=== PATIENT | male | born 1960 | race Caucasian/White ===

== ENCOUNTER → 2016-03-06 | Outpatient (CLI) | payer BC ==
--- NOTE | 2016-03-06 11:34 | XR ---
EXAMINATION TYPE: XR chest 2V DATE OF EXAM: 03/06/2016 11:20 AM COMPARISON: 05/27/2014 INDICATION: Difficulty breathing history of COPD TECHNIQUE: Frontal and lateral views of the chest are obtained. FINDINGS: The heart size is normal. The pulmonary vasculature is normal. Some minimal linear atelectasis may be within the right midlung. IMPRESSION: 1. Mild atelectasis right midlung.
== END | disposition home or self-care (01) ==
LOC: RADXRMAIN 10:48
PROVIDERS: ATTEND Nurse Practitioner Family
DX: J98.11 Atelectasis (principal)
CPT/HCPCS: 71020

== ENCOUNTER 2019-03-09 10:01 | Inpatient (IN) | payer BC, OTHER ==
[2019-03-09] MEDS ORDERED: methylPREDNISolone SOD SUCCI 125 MG/2 ML VIAL IV STA (10:20)
[2019-03-09] MEDS ORDERED: IPRATROPIUM-ALBUTEROL 3 ML NEB INHALATION STA (10:20)
--- NOTE | 2019-03-09 10:21 | ED ---
SOB HPI - General Source: patient Mode of arrival: wheelchair Limitations: no limitations <Denis Montoya - Last Filed: 03/09/19 13:49> <Tricia Aguilar - Last Filed: 03/11/19 22:09> - General Chief Complaint: Shortness of Breath Stated Complaint: RADHA Time Seen by Provider: 03/09/19 10:14 - History of Present Illness Initial Comments: Patient is a 58-year-old male with history of COPD presents emergency Department with a chief complaint of shortness of breath. Patient reports initially developing respiratory symptoms and nonproductive cough 4 days ago. He states states that he went to his primary care was prescribed azithromycin. Patient states he has been taking his medication as directed with minimal improvement in symptoms. Patient reports increased shortness of breath but denies any chest pain. Did reports some wheezing at home but not in the ED. Patient does not use oxygen at home but does have multiple inhalers for his COPD. Patient was a lifelong smoker but quit 2 years ago. Patient does report chills but denies any fevers. Does report several episodes of posttussive emesis. Patient does have history of frequent pneumonia. (Denis Montoya) - Related Data Home Medications Medication Instructions Recorded Confirmed Albuterol Inhaler [Ventolin 1 - 2 puff INHALATION RT-QID PRN 03/09/19 03/09/19 Inhaler] Azithromycin [Zithromax Z-pack] See Taper PO DIRECTED 03/09/19 03/09/19 Benzonatate [Tessalon Perles] 100 mg PO TID PRN 03/09/19 03/09/19 Budesonide-Formot 160-4.5 Mcg 2 puff INHALATION RT-BID 03/09/19 03/09/19 [Symbicort 160-4.5 Mcg Inhaler] Ipratropium/Albuterol Sulfate 1 puff INHALATION RT-QID 03/09/19 03/09/19 [Combivent Respimat Inhaler] predniSONE [Deltasone] 40 mg PO DAILY 03/09/19 03/09/19 Allergies Allergy/AdvReac Type Severity Reaction Status Date / Time Penicillins Allergy Rash/Hives Verified 03/09/19 12:33 Review of Systems ROS Other: All systems not noted in ROS Statement are negative. <Denis Montoya - Last Filed: 03/09/19 13:49> ROS Other: All systems not noted in ROS Statement are negative. <Tricia Aguilar Sharla - Last Filed: 03/11/19 22:09> ROS Statement: Those systems with pertinent positive or pertinent negative responses have been documented in the HPI. Past Medical History Past Medical History: COPD, Pneumonia History of Any Multi-Drug Resistant Organisms: None Reported Past Surgical History: Appendectomy, Tonsillectomy Additional Past Surgical History / Comment(s): Shoulder Surgery, Knee Surgery Past Psychological History: No Psychological Hx Reported Smoking Status: Former smoker Past Alcohol Use History: None Reported Past Drug Use History: None Reported <Denis Montoya - Last Filed: 03/09/19 13:49> General Exam Limitations: no limitations General appearance: alert, in no apparent distress Head exam: Present: atraumatic, normocephalic, normal inspection Eye exam: Present: normal appearance, PERRL, EOMI Pupils: Present: normal accommodation ENT exam: Present: normal exam, normal oropharynx, mucous membranes moist, TM's normal bilaterally, normal external ear exam Neck exam: Present: normal inspection, full ROM. Absent: lymphadenopathy Respiratory exam: Present: wheezes (Bilateral wheezing). Absent: chest wall tenderness, accessory muscle use Cardiovascular Exam: Present: normal rhythm, tachycardia, normal heart sounds GI/Abdominal exam: Present: soft. Absent: distended, tenderness Extremities exam: Present: normal inspection, full ROM Back exam: Present: normal inspection, full ROM Neurological exam: Present: alert, oriented X3 Psychiatric exam: Present: normal affect, normal mood Skin exam: Present: warm, dry, intact, normal color <Denis Montoya - Last Filed: 03/09/19 13:49> Course Vital Signs 03/09/19 03/09/19 03/09/19 10:06 10:37 10:46 Temperature 99.3 F Pulse Rate 108 H 108 H 112 H Respiratory 18 Rate Blood Pressure 99/64 O2 Sat by Pulse 90 L Oximetry 03/09/19 03/09/19 03/09/19 11:07 11:18 11:52 Temperature 100.5 F H Pulse Rate 110 H 104 H Respiratory 20 20 Rate Blood Pressure 119/80 118/72 O2 Sat by Pulse 88 L 95 94 L Oximetry 03/09/19 03/09/19 03/09/19 12:47 13:08 13:48 Temperature 99.1 F Pulse Rate 100 Respiratory 22 Rate Blood Pressure 117/47 O2 Sat by Pulse 92 L 95 Oximetry 03/09/19 14:00 Temperature Pulse Rate 89 Respiratory 20 Rate Blood Pressure 102/71 O2 Sat by Pulse 92 L Oximetry Medical Decision Making - Lab Data Result diagrams: 03/09/19 12:44 03/09/19 12:44 <Denis Montoya - Last Filed: 03/09/19 13:49> - Lab Data Result diagrams: 03/11/19 07:14 03/11/19 07:14 <Tricia Aguilar - Last Filed: 03/11/19 22:09> - Medical Decision Making Patient is 58-year-old male with history of COPD presents emergency Department with a chief complaint of shortness of breath. On exam patient does appear to be short of breath with very mild wheezing bilaterally. Patient was given DuoNeb treatment with some improvement in symptoms. Chest x-ray shows an opacity in the left lower lung base suggesting pneumonia. Patient is also influenza positive. Patient has already failed outpatient treatment and continues to be short of breath after updraft. Patient also given Solu-Medrol to treat COPD exacerbation. Patient did develop a fever in the ED and was treated with Tylenol. Patient will be admitted for further management. Patient started on Rocephin. Case discussed with physician. Accepting physician is dr. dumont (Denis Montoya) I was available for consultation in the emergency department. The history and physical exam were done by the midlevel provider. I was consulted for this patients care. I reviewed the case with the midlevel provider and based on their presentation of the patient, I agree with the assessment, medical decision making and plan of care as documented. I discussed the case with Dr. Bolivar who accepted admission of the patient. Chart was dictated using [employer] dictation software. Attempts were made to correct any dictation errors however some typographical errors may persist. (Tricia Aguilar) - Lab Data Lab Results 03/09/19 03/09/19 03/09/19 Range/Units 10:29 12:44 12:44 WBC 2.9 L (3.8-10.6) k/uL RBC 5.09 (4.30-5.90) m/uL Hgb 14.3 (13.0-17.5) gm/dL Hct 43.7 (39.0-53.0) % MCV 85.9 (80.0-100.0) fL MCH 28.1 (25.0-35.0) pg MCHC 32.7 (31.0-37.0) g/dL RDW 14.3 (11.5-15.5) % Plt Count 213 (150-450) k/uL Neutrophils % 83 % Lymphocytes % 8 % Monocytes % 4 % Eosinophils % 1 % Basophils % 3 % Neutrophils # 2.4 (1.3-7.7) k/uL Lymphocytes # 0.3 L (1.0-4.8) k/uL Monocytes # 0.1 (0-1.0) k/uL Eosinophils # 0.0 (0-0.7) k/uL Basophils # 0.1 (0-0.2) k/uL Sodium 136 L (137-145) mmol/L Potassium 4.4 (3.5-5.1) mmol/L Chloride 105 (98-107) mmol/L Carbon Dioxide 25 (22-30) mmol/L Anion Gap 6 mmol/L BUN 22 H (9-20) mg/dL Creatinine 0.73 (0.66-1.25) mg/dL Est GFR (CKD-EPI)AfAm >90 (>60 ml/min/1.73 sqM) Est GFR (CKD-EPI)NonAf >90 (>60 ml/min/1.73 sqM) Glucose 116 H (74-99) mg/dL Plasma Lactic Acid Vinny (0.7-2.0) mmol/L Calcium 7.9 L (8.4-10.2) mg/dL Total Bilirubin 0.4 (0.2-1.3) mg/dL AST 45 (17-59) U/L ALT 23 (4-49) U/L Alkaline Phosphatase 70 (38-126) U/L Total Protein 6.4 (6.3-8.2) g/dL Albumin 3.6 (3.5-5.0) g/dL Influenza Type A RNA Detected H (Not Detectd) Influenza Type B (PCR) Not Detected (Not Detectd) 03/09/19 Range/Units 12:44 WBC (3.8-10.6) k/uL RBC (4.30-5.90) m/uL Hgb (13.0-17.5) gm/dL Hct (39.0-53.0) % MCV (80.0-100.0) fL MCH (25.0-35.0) pg MCHC (31.0-37.0) g/dL RDW (11.5-15.5) % Plt Count (150-450) k/uL Neutrophils % % Lymphocytes % % Monocytes % % Eosinophils % % Basophils % % Neutrophils # (1.3-7.7) k/uL Lymphocytes # (1.0-4.8) k/uL Monocytes # (0-1.0) k/uL Eosinophils # (0-0.7) k/uL Basophils # (0-0.2) k/uL Sodium (137-145) mmol/L Potassium (3.5-5.1) mmol/L Chloride (98-107) mmol/L Carbon Dioxide (22-30) mmol/L Anion Gap mmol/L BUN (9-20) mg/dL Creatinine (0.66-1.25) mg/dL Est GFR (CKD-EPI)AfAm (>60 ml/min/1.73 sqM) Est GFR (CKD-EPI)NonAf (>60 ml/min/1.73 sqM) Glucose (74-99) mg/dL Plasma Lactic Acid Vinny 0.7 (0.7-2.0) mmol/L Calcium (8.4-10.2) mg/dL Total Bilirubin (0.2-1.3) mg/dL AST (17-59) U/L ALT (4-49) U/L Alkaline Phosphatase (38-126) U/L Total Protein (6.3-8.2) g/dL Albumin (3.5-5.0) g/dL Influenza Type A RNA (Not Detectd) Influenza Type B (PCR) (Not Detectd) Disposition Is patient prescribed a controlled substance at d/c from ED?: No Time of Disposition: 13:53 <Denis Montoya - Last Filed: 03/09/19 13:49> <Tricia Aguilar - Last Filed: 03/11/19 22:09> Clinical Impression: Pneumonia, Shortness of breath, Influenza A Disposition: ADMITTED IP TO THIS HOSP Condition: Fair
[2019-03-09] MEDS ORDERED: ACETAMINOPHEN TAB 500 MG TAB PO STA (11:38)
--- NOTE | 2019-03-09 11:52 | XR ---
EXAMINATION TYPE: XR chest 2V DATE OF EXAM: 03/09/2019 COMPARISON: 03/06/2016 HISTORY: Shortness of breath TECHNIQUE: Frontal and lateral views of the chest are obtained. FINDINGS: Scattered senescent parenchymal changes noted. Hyperinflation compatible with COPD. Focal area of infiltrate suggested left lateral lung base. Correlate for pneumonia. Follow-up until r esolution is advised. Interstitial prominence is also noted throughout both lung paul. Heart size is stable. Mediastinal structures are stable and grossly unremarkable. No evidence for hilar prominence. Degenerative changes dorsal spine. IMPRESSION: 1. Focal area of infiltrate suggested left lateral lung base. Correlate for pneumonia. Follow-up unti l resolution is advised. Interstitial prominence is also noted throughout both lung paul.
[2019-03-09 12:58] LABS: Basophils # (A) 0.1 k/uL (0-0.2); Basophils % (A) 3 %; Eosinophils % (A) 1 %; HCT 43.7 % (39.0-53.0); HGB 14.3 gm/dL (13.0-17.5); Lymphocytes # (A) 0.3 k/uL (1.0-4.8); Lymphocytes % (A) 8 %; MCH 28.1 pg (25.0-35.0); MCHC 32.7 g/dL (31.0-37.0); MCV 85.9 fL (80.0-100.0); Monocytes # (A) 0.1 k/uL (0-1.0); Monocytes % (A) 4 %; Neutrophils # (A) 2.4 k/uL (1.3-7.7); Neutrophils % (A) 83 %; Platelet Count 213 k/uL (150-450); RBC 5.09 m/uL (4.30-5.90); RDW 14.3 % (11.5-15.5); WBC 2.9 k/uL (3.8-10.6)
[2019-03-09 13:06] LABS: ALT 23 U/L (4-49); AST 45 U/L (17-59); African American GFR (CKD) >90 (>60 ml/min/1.73 sqM); Albumin 3.6 g/dL (3.5-5.0); Alkaline Phosphatase 70 U/L (38-126); Anion Gap 6 mmol/L; Blood Urea Nitrogen 22 mg/dL (9-20); Calcium 7.9 mg/dL (8.4-10.2); Carbon Dioxide 25 mmol/L (22-30); Chloride 105 mmol/L (98-107); Glucose 116 mg/dL (74-99); Non-African American GFR(CKD) >90 (>60 ml/min/1.73 sqM); Potassium 4.4 mmol/L (3.5-5.1); Sodium 136 mmol/L (137-145); Total Bilirubin 0.4 mg/dL (0.2-1.3); Total Protein 6.4 g/dL (6.3-8.2)
[2019-03-09] MEDS ORDERED: PNEUMONIA PROTOCOL UTILIZED 1 EACH MISC PO PRN ×2 (13:48→17:33)
[2019-03-09] MEDS ORDERED: cefTRIAXone IN SWFI 1,000 MG/10 ML SYRINGE IVP STA (13:49)
[2019-03-09] MEDS ORDERED: INFLUENZA VACCINE (6 MOS+) 60 MCG/0.5 ML SYRINGE IM ONE (14:53)
[2019-03-09] MEDS ORDERED: AZITHROMYCIN 500 MG in SODIUM CHLORIDE 0.9% 250 ML IVPB STA (17:33)
[2019-03-09] MEDS ORDERED: BENZONATATE 100 MG CAP PO PRN (17:36)
[2019-03-09] MEDS: methylPREDNISolone SOD SUCCI 125 MG/2 ML VIAL IV SCH ×2 (18:13→23:06)
[2019-03-09 20:31] LABS: Glucose,Whole Blood 142 mg/dL (75-99)
[2019-03-09] MEDS ORDERED: AZITHROMYCIN 500 MG in SODIUM CHLORIDE 0.9% 250 ML IVPB ONE (21:00)
[2019-03-09] MEDS: IPRATROPIUM-ALBUTEROL 3 ML NEB INHALATION SCH (21:29)
[2019-03-09] MEDS: SYMBICORT 160-4.5 MCG INHALER INHALATION SCH (21:29)
[2019-03-10] MEDS: methylPREDNISolone SOD SUCCI 125 MG/2 ML VIAL IV SCH ×3 (05:09→17:40)
[2019-03-10] MEDS: IPRATROPIUM-ALBUTEROL 3 ML NEB INHALATION SCH ×4 (07:12→19:37)
[2019-03-10] MEDS: SYMBICORT 160-4.5 MCG INHALER INHALATION SCH (07:12)
[2019-03-10 07:16] LABS: Glucose,Whole Blood 153 mg/dL (75-99)
--- NOTE | 2019-03-10 08:46 | XR ---
EXAMINATION TYPE: XR chest 2V DATE OF EXAM: 03/10/2019 COMPARISON: 03/09/2019 TECHNIQUE: PA and lateral views submitted. HISTORY: Cough possible pneumonia FINDINGS: No pneumothorax or pleural effusion. Subsegmental changes left lung base again noted. Coarsened inter stitium noted. Hypertrophic and degenerative change of the spine. Hyperinflation of the lungs. Pulmon [place] arteries are prominent correlate for pulmonary arterial hypertension. IMPRESSION: 1. COPD with findings suggestive of chronic interstitial lung disease such as pulmonary fibrosis. Fin dings similar to the prior exam. 2. Density along the left lateral lung bases improved correlate for resolving or improving infiltrate
[2019-03-10 09:27] LABS: Basophils % (A) 1 %; Eosinophils % (A) 0 %; HCT 43.8 % (39.0-53.0); HGB 14.2 gm/dL (13.0-17.5); Lymphocytes # (A) 0.3 k/uL (1.0-4.8); Lymphocytes % (A) 15 %; MCH 28.3 pg (25.0-35.0); MCHC 32.4 g/dL (31.0-37.0); MCV 87.3 fL (80.0-100.0); Mean Platelet Volume 6.8; Monocytes # (A) 0.2 k/uL (0-1.0); Monocytes % (A) 7 %; Neutrophils # (A) 1.6 k/uL (1.3-7.7); Neutrophils % (A) 73 %; Platelet Count 173 k/uL (150-450); RBC 5.02 m/uL (4.30-5.90); RDW 14.3 % (11.5-15.5); WBC 2.2 k/uL (3.8-10.6)
[2019-03-10 09:56] LABS: African American GFR (CKD) >90 (>60 ml/min/1.73 sqM); Anion Gap 8 mmol/L; Blood Urea Nitrogen 22 mg/dL (9-20); Calcium 7.8 mg/dL (8.4-10.2); Carbon Dioxide 27 mmol/L (22-30); Chloride 104 mmol/L (98-107); Glucose 156 mg/dL (74-99); Magnesium 2.2 mg/dL (1.6-2.3); Non-African American GFR(CKD) >90 (>60 ml/min/1.73 sqM); Potassium 4.3 mmol/L (3.5-5.1); Sodium 139 mmol/L (137-145)
[2019-03-10 12:30] LABS: Glucose,Whole Blood 147 mg/dL (75-99)
[2019-03-10] MEDS ORDERED: OSELTAMIVIR 75 MG CAP PO SCH (13:00)
--- NOTE | 2019-03-10 15:34 | P.HPIM ---
History of Present Illness H&P Date: 03/10/19 Chief Complaint: Worsening shortness of breath This is a 58-year-old gentleman history of COPD, gastroesophageal reflux disease, pneumonia, arthritis, former nicotine dependence, quit 2 years ago and multiple other medical issues. Presented to the ER with complaints of worsening shortness of breath accompanied by nonproductive cough of 4 days. Initially presented to PCPs office, prescribed azithromycin with minimal improvement. Denies chest pain, palpitations. Denies lightheadedness, dizziness or focal deficit. Denies fevers. Reports chills, nausea, vomiting. T-max 100.5. On admission O2 sat 88-90% on room air. CBC 2.2, calcium 7.8, CRP 11.4. Tested positive for influenza A. chest x-ray reporting left lateral lung base infiltrate with interstitial prominence throughout both lung paul. Follow-up chest x-ray this morning reported COPD, chronic interstitial lung disease , possible pulmonary fibrosis, improvement in left lateral lung base density. Past Medical History Past Medical History: COPD, GERD/Reflux, Pneumonia Additional Past Medical History / Comment(s): Frequent pneumonias, arthritis bilateral hands, L sided sciatica History of Any Multi-Drug Resistant Organisms: None Reported Past Surgical History: Appendectomy, Orthopedic Surgery, Tonsillectomy Additional Past Surgical History / Comment(s): R shoulder rotator cuff surgery, R knee arthroscopic surgery to remove a spur, colonoscopy. Past Anesthesia/Blood Transfusion Reactions: No Reported Reaction Smoking Status: Former smoker - Past Family History Father Family Medical History: Myocardial Infarction (TN) Additional Family Medical History / Comment(s): Father of a [place] at the age of 67yrs. Mother Family Medical History: Rheumatoid Arthritis (RA) Additional Family Medical History / Comment(s): Mother from a complication of her RA Medications and Allergies Home Medications Medication Instructions Recorded Confirmed Type Albuterol Inhaler [Ventolin 1 - 2 puff INHALATION RT-QID PRN 03/09/19 03/09/19 History Inhaler] Azithromycin [Zithromax Z-pack] See Taper PO DIRECTED 03/09/19 03/09/19 History Benzonatate [Tessalon Perles] 100 mg PO TID PRN 03/09/19 03/09/19 History Budesonide-Formot 160-4.5 Mcg 2 puff INHALATION RT-BID 03/09/19 03/09/19 History [Symbicort 160-4.5 Mcg Inhaler] Ipratropium/Albuterol Sulfate 1 puff INHALATION RT-QID 03/09/19 03/09/19 History [Combivent Respimat Inhaler] predniSONE 40 mg PO DAILY 03/09/19 03/09/19 History Allergies Allergy/AdvReac Type Severity Reaction Status Date / Time Penicillins Allergy Rash/Hives Verified 03/09/19 12:33 Physical Exam Vitals: Vital Signs Temp Pulse Pulse Resp BP Pulse Ox 03/10/19 11:05 82 03/10/19 10:51 80 03/10/19 07:27 78 03/10/19 07:13 75 95 03/10/19 05:00 97.7 F 73 20 115/72 92 L 03/09/19 22:20 20 03/09/19 21:52 100 03/09/19 21:32 100 03/09/19 21:00 97.7 F 85 20 110/69 95 03/09/19 15:40 98.0 F 78 16 109/69 95 Intake and Output 03/10/19 03/10/19 03/10/19 06:59 14:59 22:59 Other: # Voids 2 Results CBC & Chem 7: 03/10/19 08:48 03/10/19 08:48 Labs: Abnormal Lab Results - Last 24 Hours (Table) 03/09/19 03/09/19 03/10/19 Range/Units 17:43 20:29 07:12 WBC (3.8-10.6) k/uL Lymphocytes # (1.0-4.8) k/uL BUN (9-20) mg/dL Creatinine (0.66-1.25) mg/dL Glucose (74-99) mg/dL POC Glucose (mg/dL) 142 H 153 H (75-99) mg/dL Calcium (8.4-10.2) mg/dL C-Reactive Protein 11.4 H (<10.0) mg/L 03/10/19 03/10/19 03/10/19 Range/Units 08:48 08:48 12:26 WBC 2.2 L (3.8-10.6) k/uL Lymphocytes # 0.3 L (1.0-4.8) k/uL BUN 22 H (9-20) mg/dL Creatinine 0.63 L (0.66-1.25) mg/dL Glucose 156 H (74-99) mg/dL POC Glucose (mg/dL) 147 H (75-99) mg/dL Calcium 7.8 L (8.4-10.2) mg/dL C-Reactive Protein (<10.0) mg/L Microbiology - Last 24 Hours (Table) 03/09/19 12:44 Blood Culture - Preliminary Blood No Growth after 24 hours Thrombosis Risk Factor Assmnt - Choose All That Apply Any of the Below Risk Factors Present?: Yes Each Factor Represents 1 point: Abnormal pulmonary function (COPD), Age 41-60 years, Serious lung disease incl. pneumonia (< 1month) Other Risk Factors: No Other congenital or acquired thrombophilia - If yes, enter type in comment: No Thrombosis Risk Factor Assessment Total Risk Factor Score: 3 Thrombosis Risk Factor Assessment Level: Moderate Risk Assessment and Plan Assessment: Acute hypoxic, hypercapnic respiratory failure, related to acute COPD exacerbation, viral left lower lobe pneumonia, influenza A, failed outpatient treatment Possible chronic interstitial lung disease Possible pulmonary fibrosis Former nicotine dependence, quit 2 years ago Gastroesophageal reflux disease Family history of CAD Plan: Continue on current medication regime ,monitoring and symptomatic treatment. Nebulized bronchodilators, Pulmicort, IV steroids, Rocephin, Zithromax ordered. No Tamiflu as symptoms are greater than 4 days. GI prophylaxis in place with PPI. DVT prophylaxis; Compression stockings, patient ambulatory. Home meds have been reviewed and resumed. Pulmonary consulted. Benzonate discontinued, Mucinex ordered. Continue following cultures closely. The impression and plan of care has been dictated as directed. : I performed a history and examination of this patient, discussed the same with the dictator. I agree with the dictator's note ,documented as a scribe. Any additional findings or plans will be noted.
[2019-03-10] MEDS: BUDESONIDE 1 MG/2 ML NEBU INHALATION SCH ×2 (15:53→19:37)
[2019-03-10] MEDS: guaiFENesin 600 MG TABLET.ER PO SCH (16:36)
[2019-03-10] MEDS: PANTOPRAZOLE 40 MG/10 ML VIAL IVP SCH (16:36)
[2019-03-10 17:17] LABS: Glucose,Whole Blood 152 mg/dL (75-99)
[2019-03-10] MEDS: INSULIN ASPART (NovoLOG) 100 UNIT/ML VIAL SQ SCH ×2 (17:40→21:28)
[2019-03-10 21:07] LABS: Glucose,Whole Blood 169 mg/dL (75-99)
[2019-03-11] MEDS: methylPREDNISolone SOD SUCCI 125 MG/2 ML VIAL IV SCH ×4 (00:11→17:15)
[2019-03-11 07:01] LABS: Glucose,Whole Blood 142 mg/dL (75-99)
[2019-03-11] MEDS: PANTOPRAZOLE 40 MG/10 ML VIAL IVP SCH (07:11)
[2019-03-11] MEDS: guaiFENesin 600 MG TABLET.ER PO SCH ×2 (07:11→21:14)
[2019-03-11] MEDS: INSULIN ASPART (NovoLOG) 100 UNIT/ML VIAL SQ SCH ×4 (07:12→21:15)
[2019-03-11 07:43] LABS: Basophils # (A) 0.1 k/uL (0-0.2); Basophils % (A) 1 %; Eosinophils % (A) 0 %; HCT 41.3 % (39.0-53.0); HGB 13.1 gm/dL (13.0-17.5); Lymphocytes # (A) 0.5 k/uL (1.0-4.8); Lymphocytes % (A) 10 %; MCH 27.8 pg (25.0-35.0); MCHC 31.7 g/dL (31.0-37.0); MCV 87.5 fL (80.0-100.0); Mean Platelet Volume 7.4; Monocytes # (A) 0.3 k/uL (0-1.0); Monocytes % (A) 5 %; Neutrophils # (A) 4.4 k/uL (1.3-7.7); Neutrophils % (A) 80 %; Platelet Count 155 k/uL (150-450); RBC 4.71 m/uL (4.30-5.90); RDW 14.4 % (11.5-15.5); WBC 5.5 k/uL (3.8-10.6)
[2019-03-11 07:53] LABS: African American GFR (CKD) >90 (>60 ml/min/1.73 sqM); Anion Gap 5 mmol/L; Blood Urea Nitrogen 22 mg/dL (9-20); Calcium 7.9 mg/dL (8.4-10.2); Carbon Dioxide 28 mmol/L (22-30); Chloride 105 mmol/L (98-107); Glucose 154 mg/dL (74-99); Non-African American GFR(CKD) >90 (>60 ml/min/1.73 sqM); Potassium 4.3 mmol/L (3.5-5.1); Sodium 138 mmol/L (137-145)
[2019-03-11] MEDS: IPRATROPIUM-ALBUTEROL 3 ML NEB INHALATION SCH ×4 (08:52→20:09)
[2019-03-11] MEDS: BUDESONIDE 1 MG/2 ML NEBU INHALATION SCH ×2 (08:54→20:09)
[2019-03-11 12:18] LABS: Glucose,Whole Blood 134 mg/dL (75-99)
--- NOTE | 2019-03-11 15:43 | CONS ---
CONSULTATION PULMONARY/CRITICAL CARE CONSULTATION: DATE OF SERVICE: 03/11/2019 This is a 58-year-old gentleman who typically sees Dr. Alejandro Paredes and Dr. Basilio Bolivar. He presents to the emergency department on 03/09 with complaints of increasing shortness of breath which has been present for about 4 days and getting progressively worse. In addition to shortness of breath, he had chest congestion and nonproductive cough. Actually also may have had some fever. Did not actually measure his temperature at home. He went to his primary care physician and received azithromycin. He was taking medication as prescribed, but did not notice any significant improvement and for that reason, came to the emergency room to be evaluated. The patient denied any chest pain or chest discomfort. He did report some wheezing at home. The patient does not use oxygen at home, but does have multiple COPD inhalers. The patient has been smoking for many years, although quit a couple years ago. He used to see my partner, Dr. Rogers, but has not seen him recently. It appears that he has probably at least stage II and maybe stage III COPD. He was not sure about how much lung function he has lost. He denies any nausea, vomiting, diarrhea. Denies any genitourinary complaints. Denies any trauma. The patient apparently was tested in the emergency room, was thought to have influenza as well as atypical pneumonia. He is feeling a bit better. CURRENT HOME MEDICATIONS: Include albuterol inhaler in the form of Ventolin HFA, a Z-Guru which was started by him a couple days ago given to him by his primary doctor, Ollie Quick, Symbicort 160/4.5 two puffs twice a day, DuoNeb and prednisone 40 mg a day. ALLERGIES: PENICILLIN. MEDICAL HISTORY: Includes COPD from heavy tobacco use in the past. He also has a prior history of pneumonia. PAST SURGICAL HISTORY: Includes appendectomy, tonsillectomy, shoulder surgery and knee surgery. SOCIAL HISTORY: Positive for probably 40 years of tobacco use. Does not smoke currently. Denies any significant alcohol use or illicit drug use. FAMILY HISTORY: Noncontributory. Both mother and father were healthy. REVIEW OF SYSTEMS: CONSTITUTIONAL: Possible fever or at least temperature elevation without chills. NEUROLOGIC: Negative. HEENT: Negative. CARDIOVASCULAR: Negative. PULMONARY: Shortness of breath. CHEST: Tightness, wheezing, cough which is nonproductive, chest congestion. GI: Negative. : Negative. RHEUMATOLOGIC: Negative. IMMUNOLOGIC; Negative. ENDOCRINOLOGIC: Negative. DERMATOLOGIC: Negative. Current vital signs are reviewed. Temperature is 97.4, heart rate 72, respiratory rate 20, blood pressure 119/68 mean 85, 3 L saturation 93%-94%. Appears in no acute distress. HEENT: Examination is grossly unremarkable. Mucous membranes moist. No oral lesions. Nasal O2 noted. NECK: Supple full range of motion. No adenopathy, thyromegaly or neck vein distention. CARDIOVASCULAR: Examination reveals regular rhythm rate. Heart rate mid 70s. S1, S2 normal. There is no S3, S4, or murmur. LUNGS: Coarse expiratory rhonchi and wheezes. Breath sounds are diminished. There is prolongation on forced maneuver. The patient coughs and wheezes on forced maneuver. ABDOMEN: Soft, bowel sounds are heard. EXTREMITIES: Intact. No cyanosis, clubbing, or edema. SKIN: Without rash. NEUROLOGIC: Examination is brief but nonfocal. The chest x-ray, most recent chest x-ray was done both yesterday and today. It does show changes of COPD and a diffuse interstitial pattern which may be consistent with interstitial lung disease and/or atypical pneumonia. There also may be a left lateral lung base infiltrate. LABS: Reviewed. White count 5.5, hemoglobin 13.1, hematocrit 41.3, platelet count is a 155,000. The first couple of CBCs showed leukopenia and lymphopenia consistent with a viral infection. Sodium, potassium, chloride, CO2 all normal anion gap normal. BUN and creatinine were 22 and 0.68. Sugar 154, calcium 7.9. C-reactive protein 11.4, which is elevated. Influenza A studies were positive. Microbiologic studies including blood cultures were negative. Medications are reviewed. He is currently on Pulmicort 1 mg, Rocephin guaifenesin, insulin, Solu-Medrol, and Protonix. ASSESSMENT: 1. Chronic obstructive pulmonary disease exacerbation, likely triggered by influenza A infection. 2. No clear-cut evidence of pneumonia although the patient may have viral or atypical pneumonia based on his chest x-ray appearance. 3. Previous history of heavy tobacco use. 4. History of chronic obstructive pulmonary disease. 5. Prior history of pneumonia. PLAN: The patient will get formoterol added to his regimen. In addition, the patient is on Rocephin currently. I do not know if he has received Tamiflu. If he has not, he should. Additional recommendations and suggestions are forthcoming. Will continue to follow. Prognosis is guarded. He should follow up with Dr. Rogers or our office after discharge. MMODL / OPALN: [id number] /
[2019-03-11 16:59] LABS: Glucose,Whole Blood 196 mg/dL (75-99)
--- NOTE | 2019-03-11 17:26 | P.PN ---
Subjective Progress Note Date: 03/11/19 This is a 58-year-old gentleman history of COPD, gastroesophageal reflux disease, pneumonia, arthritis, former nicotine dependence, quit 2 years ago and multiple other medical issues. Presented to the ER with complaints of worsening shortness of breath accompanied by nonproductive cough of 4 days. Initially presented to PCPs office, prescribed azithromycin with minimal improvement. Denies chest pain, palpitations. Denies lightheadedness, dizziness or focal deficit. Denies fevers. Reports chills, nausea, vomiting. T-max 100.5. On admission O2 sat 88-90% on room air. CBC 2.2, calcium 7.8, CRP 11.4. Tested positive for influenza A. chest x-ray reporting left lateral lung base infiltrate with interstitial prominence throughout both lung paul. Follow-up chest x-ray this morning reported COPD, chronic interstitial lung disease , possible pulmonary fibrosis, improvement in left lateral lung base density. 03/11/2019 maintained on IV antibiotics, steroids, nebulized bronchodilators, breathing improving. Reports nonproductive cough, exertional shortness of breath, constipation. Denies chest pain, palpitations or shortness of breath. Afebrile, normal WBC. Evaluated by pulmonary with recommendations noted and appreciated. Objective - Vital Signs Vital signs: Vital Signs Temp 97.6 F 03/11/19 12:14 Pulse 80 03/11/19 17:06 Resp 20 03/11/19 12:14 BP 115/68 03/11/19 12:14 Pulse Ox 93 L 03/11/19 16:55 Intake & Output 03/10/19 03/11/19 03/11/19 18:59 06:59 18:59 Intake Total 800 Balance 800 Intake: Oral 800 Other: Voiding Method Toilet Toilet Urinal Urinal # Voids 2 2 2 - Exam VITAL SIGNS: [As above] GENERAL: Sitting up at side of bed, tired appearing HEENT: Conjunctivae normal. eyes normal. NECK: No JVD. No thyroid enlargement. No LNs CARDIOVASCULAR: S1, S2 regular.. No murmur RESPIRATION: Breath sounds diminished in the bases. Coarse rhonchi, no crackles. Expiratory wheezing ABDOMEN: Soft, nontender . No guarding. no masses palpable. No ascites, No hepatosplenomegaly.Bowel sounds heard. LEGS: No edema. no swelling PSYCHIATRY: Alert and oriented X3, mood and affect normal. NERVOUS SYSTEM: Cranial N 2-12 grossly normal. Moves all 4 limbs. Diffuse weakness No focal deficits. Strength and sensation grossly intact.. Skin:no rash Microbiology 03/09/19 12:44 Blood Blood Culture - Preliminary No Growth after 48 hours 03/09/19 17:43 Blood Blood Culture - Preliminary No Growth after 24 hours - Labs CBC & Chem 7: 03/11/19 07:14 03/11/19 07:14 Labs: Abnormal Lab Results - Last 24 Hours (Table) 03/10/19 03/10/19 03/11/19 Range/Units 17:14 21:06 06:50 Lymphocytes # (1.0-4.8) k/uL BUN (9-20) mg/dL Glucose (74-99) mg/dL POC Glucose (mg/dL) 152 H 169 H 142 H (75-99) mg/dL Calcium (8.4-10.2) mg/dL 03/11/19 03/11/19 03/11/19 Range/Units 07:14 07:14 12:13 Lymphocytes # 0.5 L (1.0-4.8) k/uL BUN 22 H (9-20) mg/dL Glucose 154 H (74-99) mg/dL POC Glucose (mg/dL) 134 H (75-99) mg/dL Calcium 7.9 L (8.4-10.2) mg/dL 03/11/19 Range/Units 16:45 Lymphocytes # (1.0-4.8) k/uL BUN (9-20) mg/dL Glucose (74-99) mg/dL POC Glucose (mg/dL) 196 H (75-99) mg/dL Calcium (8.4-10.2) mg/dL Microbiology - Last 24 Hours (Table) 03/09/19 12:44 Blood Culture - Preliminary Blood No Growth after 48 hours 03/09/19 17:43 Blood Culture - Preliminary Blood No Growth after 24 hours Assessment and Plan Assessment: Acute hypoxic, hypercapnic respiratory failure, related to acute COPD exacerbation, viral left lower lobe pneumonia, influenza A, failed outpatient treatment Possible chronic interstitial lung disease Possible pulmonary fibrosis Former nicotine dependence, quit 2 years ago Gastroesophageal reflux disease Family history of CAD Plan: Continue on current medication regime ,monitoring and symptomatic treatment. Nebulized bronchodilators, Pulmicort, IV steroids, Rocephin, Zithromax ordered. No Tamiflu as symptoms are greater than 4 days.Continue following cultures closely. The impression and plan of care has been dictated as directed. : I performed a history and examination of this patient, discussed the same with the dictator. I agree with the dictator's note ,documented as a scribe. Any additional findings or plans will be noted.
[2019-03-11] MEDS: POLYETHYLENE GLYCOL 3350 17 GM POWD.PACK PO SCH (17:34)
[2019-03-11] MEDS: FORMOTEROL FUMARATE 20 MCG/2 ML NEBU INHALATION SCH (20:09)
[2019-03-11 20:24] LABS: Glucose,Whole Blood 183 mg/dL (75-99)
[2019-03-11] MEDS: DOXYCYCLINE 100 MG CAP PO SCH (21:15)
[2019-03-12] MEDS: methylPREDNISolone SOD SUCCI 125 MG/2 ML VIAL IV SCH ×4 (00:50→17:21)
[2019-03-12 06:58] LABS: Glucose,Whole Blood 148 mg/dL (75-99)
[2019-03-12] MEDS: DOXYCYCLINE 100 MG CAP PO SCH ×2 (07:10→21:58)
[2019-03-12] MEDS: PANTOPRAZOLE 40 MG TABLET PO SCH (07:10)
[2019-03-12] MEDS: INSULIN ASPART (NovoLOG) 100 UNIT/ML VIAL SQ SCH ×4 (07:10→21:38)
[2019-03-12] MEDS: POLYETHYLENE GLYCOL 3350 17 GM POWD.PACK PO SCH (07:10)
[2019-03-12] MEDS: guaiFENesin 600 MG TABLET.ER PO SCH ×2 (07:10→21:39)
[2019-03-12] MEDS: IPRATROPIUM-ALBUTEROL 3 ML NEB INHALATION SCH ×4 (08:30→20:09)
[2019-03-12] MEDS: BUDESONIDE 1 MG/2 ML NEBU INHALATION SCH ×2 (08:30→20:09)
[2019-03-12] MEDS: FORMOTEROL FUMARATE 20 MCG/2 ML NEBU INHALATION SCH ×2 (08:30→20:09)
[2019-03-12 08:46] LABS: Basophils # (A) 0.1 k/uL (0-0.2); Basophils % (A) 1 %; Eosinophils % (A) 0 %; HCT 43.1 % (39.0-53.0); HGB 13.7 gm/dL (13.0-17.5); Lymphocytes # (A) 0.6 k/uL (1.0-4.8); Lymphocytes % (A) 6 %; MCH 28.3 pg (25.0-35.0); MCHC 31.8 g/dL (31.0-37.0); MCV 88.8 fL (80.0-100.0); Mean Platelet Volume 7.6; Monocytes # (A) 0.2 k/uL (0-1.0); Monocytes % (A) 3 %; Neutrophils # (A) 8.2 k/uL (1.3-7.7); Neutrophils % (A) 88 %; Platelet Count 184 k/uL (150-450); RBC 4.85 m/uL (4.30-5.90); RDW 14.5 % (11.5-15.5); WBC 9.3 k/uL (3.8-10.6)
[2019-03-12 09:02] LABS: African American GFR (CKD) >90 (>60 ml/min/1.73 sqM); Anion Gap 9 mmol/L; Blood Urea Nitrogen 21 mg/dL (9-20); Calcium 7.9 mg/dL (8.4-10.2); Carbon Dioxide 26 mmol/L (22-30); Chloride 105 mmol/L (98-107); Glucose 188 mg/dL (74-99); Non-African American GFR(CKD) >90 (>60 ml/min/1.73 sqM); Potassium 4.2 mmol/L (3.5-5.1); Sodium 140 mmol/L (137-145)
--- NOTE | 2019-03-12 11:56 | P.PN ---
Subjective Progress Note Date: 03/12/19 Principal diagnosis: Acute exacerbation of COPD likely triggered by influenza A infection On 03/12/2019 patient seen in follow-up on general medical floor, still dyspneic but breathing a little easier, improving, lung sounds are positive for some scattered rales and rhonchi, patient is on nebulized bronchodilators, IV steroids, Protonix, and doxycycline Objective - Vital Signs Vital signs: Vital Signs Temp 97.4 F L 03/12/19 04:33 Pulse 88 03/12/19 11:41 Resp 24 03/12/19 04:33 BP 121/73 03/12/19 04:33 Pulse Ox 94 L 03/12/19 04:33 Intake & Output 03/11/19 03/12/19 03/12/19 18:59 06:59 18:59 Other: Voiding Method Toilet Toilet Toilet Urinal Urinal Urinal # Voids 1 2 - Exam GENERAL EXAM: Alert, very pleasant, 58-year-old white male, on 3 L of oxygen with pulse ox of 94% dyspneic but comfortable in no apparent distress. HEAD: Normocephalic/atraumatic. EYES: Normal reaction of pupils, equal size. Conjunctiva pink, sclera white. NOSE: Clear with pink turbinates. THROAT: No erythema or exudates. NECK: No masses, no JVD, no thyroid enlargement, no adenopathy. CHEST: No chest wall deformity. Symmetrical expansion. LUNGS: Equal air entry with diffuse rhonchi and crackles CVS: Regular rate and rhythm, normal S1 and S2, no gallops, no murmurs, no rubs ABDOMEN: Soft, nontender. No hepatosplenomegaly, normal bowel sounds, no guarding or rigidity. EXTREMITIES: No clubbing, no edema, no cyanosis, 2+ pulses and upper and lower extremities. MUSCULOSKELETAL: Muscle strength and tone normal. SPINE: No scoliosis or deformity SKIN: No rashes CENTRAL NERVOUS SYSTEM: Alert and oriented -3. No focal deficits, tone is normal in all 4 extremities. PSYCHIATRIC: Alert and oriented -3. Appropriate affect. Intact judgment and insight. - Labs CBC & Chem 7: 03/12/19 07:53 03/12/19 07:53 Labs: Abnormal Lab Results - Last 24 Hours (Table) 03/11/19 03/11/19 03/11/19 Range/Units 12:13 16:45 20:12 Neutrophils # (1.3-7.7) k/uL Lymphocytes # (1.0-4.8) k/uL BUN (9-20) mg/dL Glucose (74-99) mg/dL POC Glucose (mg/dL) 134 H 196 H 183 H (75-99) mg/dL Calcium (8.4-10.2) mg/dL 03/12/19 03/12/19 03/12/19 Range/Units 06:57 07:53 07:53 Neutrophils # 8.2 H (1.3-7.7) k/uL Lymphocytes # 0.6 L (1.0-4.8) k/uL BUN 21 H (9-20) mg/dL Glucose 188 H (74-99) mg/dL POC Glucose (mg/dL) 148 H (75-99) mg/dL Calcium 7.9 L (8.4-10.2) mg/dL Microbiology - Last 24 Hours (Table) 03/09/19 17:43 Blood Culture - Preliminary Blood No Growth after 48 hours 03/09/19 12:44 Blood Culture - Preliminary Blood No Growth after 48 hours Assessment and Plan Plan: Assessment: #1. Acute exacerbation of chronic Active Pulmonary Disease Triggered by Influenza A Infection #2. No Clear Cut Evidence of Pneumonia Seen on the Chest X-Ray #3. Previous History of Heavy Tobacco Use #4. History of Chronic Obstructive Pulmonary Disease #5. Prior history of pneumonia Plan: Continue with doxycycline, continue with IV steroids and nebulized bronchodilators, patient is improving, but not back to baseline, still dyspneic and congested, need another 24 hours of inpatient treatment. Tamiflu was not initiated related to patient being well into the course of the infection. I performed a history & physical examination of the patient and discussed their management with my nurse practitioner, Francesca Contreras. I reviewed the nurse practitioner's note and agree with the documented findings and plan of care. Lung sounds are positive for diffuse rhonchi throughout the lung paul. The findings and the impression was discussed with the patient. I attest to the documentation by the nurse practitioner. Time with Patient: Less than 30
[2019-03-12 11:58] LABS: Glucose,Whole Blood 129 mg/dL (75-99)
[2019-03-12 13:01] VITALS: RESP 16
[2019-03-12 16:56] LABS: Glucose,Whole Blood 169 mg/dL (75-99)
--- NOTE | 2019-03-12 17:02 | P.PN ---
Subjective Progress Note Date: 03/12/19 This is a 58-year-old gentleman history of COPD, gastroesophageal reflux disease, pneumonia, arthritis, former nicotine dependence, quit 2 years ago and multiple other medical issues. Presented to the ER with complaints of worsening shortness of breath accompanied by nonproductive cough of 4 days. Initially presented to PCPs office, prescribed azithromycin with minimal improvement. Denies chest pain, palpitations. Denies lightheadedness, dizziness or focal deficit. Denies fevers. Reports chills, nausea, vomiting. T-max 100.5. On admission O2 sat 88-90% on room air. CBC 2.2, calcium 7.8, CRP 11.4. Tested positive for influenza A. chest x-ray reporting left lateral lung base infiltrate with interstitial prominence throughout both lung paul. Follow-up chest x-ray this morning reported COPD, chronic interstitial lung disease , possible pulmonary fibrosis, improvement in left lateral lung base density. 03/11/2019 maintained on IV antibiotics, steroids, nebulized bronchodilators, breathing improving. Reports nonproductive cough, exertional shortness of breath, constipation. Denies chest pain, palpitations or shortness of breath. Afebrile, normal WBC. Evaluated by pulmonary with recommendations noted and appreciated. 03/12/2019 maintained on doxycycline, nebulized bronchodilators, IV steroids with breathing slowly improving. Afebrile, normal WBC. Maintaining O2 sats in the low 90s on room air. Objective - Vital Signs Vital signs: Vital Signs Temp 97.7 F 03/12/19 13:00 Pulse 76 03/12/19 16:27 Resp 16 03/12/19 13:00 BP 121/54 03/12/19 13:00 Pulse Ox 92 L 03/12/19 13:00 Intake & Output 03/11/19 03/12/19 03/12/19 18:59 06:59 18:59 Other: Voiding Method Toilet Toilet Toilet Urinal Urinal # Voids 1 2 2 - Exam VITAL SIGNS: [As above] GENERAL: Sitting up at side of bed, tired appearing HEENT: Conjunctivae normal. eyes normal. NECK: No JVD. No thyroid enlargement. No LNs CARDIOVASCULAR: S1, S2 regular.. No murmur RESPIRATION: Air entry slowly improving .Breath sounds diminished in the bases. Coarse rhonchi, crackles. ABDOMEN: Soft, nontender . No guarding. no masses palpable. No ascites, No hepatosplenomegaly.Bowel sounds heard. LEGS: No edema. no swelling PSYCHIATRY: Alert and oriented X3, mood and affect normal. NERVOUS SYSTEM: Cranial N 2-12 grossly normal. Moves all 4 limbs. Diffuse weakness No focal deficits. Strength and sensation grossly intact.. Skin:no rash Microbiology 03/09/19 12:44 Blood Blood Culture - Preliminary No Growth after 72 hours 03/09/19 17:43 Blood Blood Culture - Preliminary No Growth after 48 hours - Labs CBC & Chem 7: 03/12/19 07:53 03/12/19 07:53 Labs: Abnormal Lab Results - Last 24 Hours (Table) 03/11/19 03/11/19 03/12/19 Range/Units 16:45 20:12 06:57 Neutrophils # (1.3-7.7) k/uL Lymphocytes # (1.0-4.8) k/uL BUN (9-20) mg/dL Glucose (74-99) mg/dL POC Glucose (mg/dL) 196 H 183 H 148 H (75-99) mg/dL Calcium (8.4-10.2) mg/dL 03/12/19 03/12/19 03/12/19 Range/Units 07:53 07:53 11:56 Neutrophils # 8.2 H (1.3-7.7) k/uL Lymphocytes # 0.6 L (1.0-4.8) k/uL BUN 21 H (9-20) mg/dL Glucose 188 H (74-99) mg/dL POC Glucose (mg/dL) 129 H (75-99) mg/dL Calcium 7.9 L (8.4-10.2) mg/dL 03/12/19 Range/Units 16:54 Neutrophils # (1.3-7.7) k/uL Lymphocytes # (1.0-4.8) k/uL BUN (9-20) mg/dL Glucose (74-99) mg/dL POC Glucose (mg/dL) 169 H (75-99) mg/dL Calcium (8.4-10.2) mg/dL Microbiology - Last 24 Hours (Table) 03/09/19 12:44 Blood Culture - Preliminary Blood No Growth after 72 hours 01/20/20 17:43 Blood Culture - Preliminary Blood No Growth after 48 hours Assessment and Plan Assessment: Acute hypoxic, hypercapnic respiratory failure, related to acute COPD exacerbation, possible viral left lower lobe pneumonia, influenza A, failed outpatient treatment Possible chronic interstitial lung disease Possible pulmonary fibrosis Former nicotine dependence, quit 2 years ago Gastroesophageal reflux disease Family history of CAD Plan: Continue on current medication regime ,monitoring and symptomatic treatment. Nebulized bronchodilators, Pulmicort, IV steroids, Rocephin, Zithromax ordered. No Tamiflu as symptoms are greater than 4 days. Increase ambulation as tolerated Discharge planning in progress for possibly tomorrow pending pulmonary clearance. The impression and plan of care has been dictated as directed. : I performed a history and examination of this patient, discussed the same with the dictator. I agree with the dictator's note ,documented as a scribe. Any additional findings or plans will be noted.
[2019-03-12 21:16] LABS: Glucose,Whole Blood 144 mg/dL (75-99)
[2019-03-13] MEDS: methylPREDNISolone SOD SUCCI 125 MG/2 ML VIAL IV SCH ×3 (00:20→11:48)
[2019-03-13 06:37] VITALS: BP 124/68; TEMP 97.9
[2019-03-13 07:23] LABS: Glucose,Whole Blood 138 mg/dL (75-99)
[2019-03-13] MEDS: INSULIN ASPART (NovoLOG) 100 UNIT/ML VIAL SQ SCH ×2 (07:38→11:54)
[2019-03-13] MEDS: guaiFENesin 600 MG TABLET.ER PO SCH (07:38)
[2019-03-13] MEDS: DOXYCYCLINE 100 MG CAP PO SCH (07:38)
[2019-03-13] MEDS: PANTOPRAZOLE 40 MG TABLET PO SCH (07:38)
[2019-03-13] MEDS: POLYETHYLENE GLYCOL 3350 17 GM POWD.PACK PO SCH (07:38)
[2019-03-13] MEDS: IPRATROPIUM-ALBUTEROL 3 ML NEB INHALATION SCH ×2 (08:05→11:22)
[2019-03-13] MEDS: BUDESONIDE 1 MG/2 ML NEBU INHALATION SCH (08:05)
[2019-03-13] MEDS: FORMOTEROL FUMARATE 20 MCG/2 ML NEBU INHALATION SCH (08:05)
[2019-03-13 08:37] LABS: Basophils % (A) 0 %; Eosinophils % (A) 0 %; HCT 46.2 % (39.0-53.0); HGB 14.4 gm/dL (13.0-17.5); Lymphocytes # (A) 0.8 k/uL (1.0-4.8); Lymphocytes % (A) 8 %; MCH 27.9 pg (25.0-35.0); MCHC 31.2 g/dL (31.0-37.0); MCV 89.2 fL (80.0-100.0); Mean Platelet Volume 7.5; Monocytes # (A) 0.3 k/uL (0-1.0); Monocytes % (A) 3 %; Neutrophils # (A) 9.4 k/uL (1.3-7.7); Neutrophils % (A) 88 %; Platelet Count 219 k/uL (150-450); RBC 5.18 m/uL (4.30-5.90); RDW 14.5 % (11.5-15.5); WBC 10.7 k/uL (3.8-10.6)
[2019-03-13 08:55] LABS: African American GFR (CKD) >90 (>60 ml/min/1.73 sqM); Anion Gap 8 mmol/L; Blood Urea Nitrogen 21 mg/dL (9-20); Calcium 8.1 mg/dL (8.4-10.2); Carbon Dioxide 29 mmol/L (22-30); Chloride 105 mmol/L (98-107); Glucose 140 mg/dL (74-99); Non-African American GFR(CKD) >90 (>60 ml/min/1.73 sqM); Potassium 4.7 mmol/L (3.5-5.1); Sodium 142 mmol/L (137-145)
[2019-03-13 11:51] LABS: Glucose,Whole Blood 133 mg/dL (75-99)
--- NOTE | 2019-03-13 14:07 | P.DS ---
Providers Date of admission: 03/09/19 13:29 Expected date of discharge: 03/13/19 Attending physician: Alejandro Paredes Consults: 03/10/19 15:19 Consult Physician Routine Consulting Provider: Rafal Braden Consult Reason/Comments: pneumonia, influenza Do you want consulting provider notified?: Yes Primary care physician: [facility] Course: Final diagnoses Acute hypoxic, hypercapnic respiratory failure, related to acute COPD exacerbation, possible viral left lower lobe pneumonia, influenza A, failed outpatient treatment Possible chronic interstitial lung disease Possible pulmonary fibrosis Former nicotine dependence, quit 2 years ago Gastroesophageal reflux disease Family history of CAD Hospital course:This is a 58-year-old gentleman history of COPD, gastr oesophageal reflux disease, pneumonia, arthritis, former nicotine dependence, quit 2 years ago and multiple other medical issues. Presented to the ER with complaints of worsening shortness of breath accompanied by nonproductive cough of 4 days. Initially presented to PCPs office, prescribed azithromycin with minimal improvement. Denies chest pain, palpitations. Denies lightheadedness, dizziness or focal deficit. Denies fevers. Reports chills, nausea, vomiting. T-max 100.5. On admission O2 sat 88-90% on room air. CBC 2.2, calcium 7.8, CRP 11.4. Tested positive for influenza A. chest x-ray reporting left lateral lung base infiltrate with interstitial prominence throughout both lung paul. Follow-up chest x-ray this morning reported COPD, chronic interstitial lung disease , possible pulmonary fibrosis, improvement in left lateral lung base density. 03/11/2019 maintained on IV antibiotics, steroids, nebulized bronchodilators, breathing improving. Reports nonproductive cough, exertional shortness of breath, constipation. Denies chest pain, palpitations or shortness of breath. Afebrile, normal WBC. Evaluated by pulmonary with recommendations noted and appreciated. 03/12/2019 maintained on doxycycline, nebulized bronchodilators, IV steroids with breathing slowly improving. Afebrile, normal WBC. Maintaining O2 sats in the low 90s on room air. Significant clinical improvement. Cleared by pulmonary for discharge. Patient is being discharged home in stable condition with guarded prognosis. O2 sat on room air after ambulation pending for potential O2 needs at discharge. Case management to assist patient in obtaining mask for nebulizing machine. - Exam GENERAL: Sitting up at side of bed, no acute distress. CARDIOVASCULAR: S1, S2 regular.. No murmur RESPIRATION: Air entry improving .Breath sounds diminished in the bases. Coarse rhonchi. ABDOMEN: Soft, nontender . No guarding. no masses palpable.Bowel sounds heard. NERVOUS SYSTEM: No focal deficits. The impression and plan of care has been dictated as directed. : I performed a history and examination of this patient, discussed the same with the dictator. I agree with the dictator's note ,documented as a scribe. Any additional findings or plans will be noted. Patient Condition at Discharge: Stable Plan - Discharge Summary Discharge Rx Participant: No New Discharge Prescriptions: New Polyethylene Glycol 3350 [Miralax] 17 gm PO DAILY powd.pack guaiFENesin [Mucinex] 600 mg PO Q12HR tablet.er Pantoprazole [Protonix] 40 mg PO AC-BRKFST #15 tablet. Doxycycline [Vibramycin] 100 mg PO BID #10 cap predniSONE 10 mg PO DIRECTED #30 tab Continue Albuterol Inhaler [Ventolin Hfa Inhaler] 1 - 2 puff INHALATION RT-QID PRN PRN Reason: Shortness Of Breath Benzonatate [Tessalon Perles] 100 mg PO TID PRN PRN Reason: Cough Ipratropium/Albuterol Sulfate [Combivent Respimat Inhaler] 1 puff INHALATION RT-QID Budesonide-Formot 160-4.5 Mcg [Symbicort 160-4.5 Mcg Inhaler] 2 puff INHALATION RT-BID Discontinued predniSONE [Deltasone] 40 mg PO DAILY Azithromycin [Zithromax Z-pack] See Taper PO DIRECTED Discharge Medication List Albuterol Inhaler [Ventolin Hfa Inhaler] 1 - 2 puff INHALATION RT-QID PRN 03/09/19 [History] Benzonatate [Tessalon Perles] 100 mg PO TID PRN 03/09/19 [History] Budesonide-Formot 160-4.5 Mcg [Symbicort 160-4.5 Mcg Inhaler] 2 puff INHALATION RT-BID 03/09/19 [History] Ipratropium/Albuterol Sulfate [Combivent Respimat Inhaler] 1 puff INHALATION RT- QID 03/09/19 [History] Doxycycline [Vibramycin] 100 mg PO BID #10 cap 03/13/19 [Rx] Pantoprazole [Protonix] 40 mg PO AC-BRKFST #15 tablet. 03/13/19 [Rx] Polyethylene Glycol 3350 [Miralax] 17 gm PO DAILY powd.pack 03/13/19 [Rx] guaiFENesin [Mucinex] 600 mg PO Q12HR tablet.er 03/13/19 [Rx] predniSONE 10 mg PO DIRECTED #30 tab 03/13/19 [Rx] Follow up Appointment(s)/Referral(s): Alejandro Paredes Jr, DO [Primary Care Provider] - 3 Days Rafal Braden DO [Doctor of Osteopathic Medicine] - 2 Weeks Ambulatory/Diagnostic Orders: Complete Blood Count w/diff [LAB.AMB] Time Frame: 3 Days, Location: None Selected Patient Instructions/Handouts: Chronic Cough (ED) Activity/Diet/Wound Care/Special Instructions: O2 sat on room air after ambulation pending
[2019-03-13 14:23] VITALS: PULSE 120
--- NOTE | 2019-03-13 14:31 | P.PN ---
Subjective Progress Note Date: 03/13/19 Principal diagnosis: Acute exacerbation COPD likely triggered by influenza A infection The patient is seen today 03/13/2019 in follow-up on the regular medical floor. He is improved today compared to yesterday. Still some faint end expiratory wheeze. A congested cough. No fever chills or night sweats. Maintaining O2 saturations in the mid 90s on 4 L nasal cannula. 87% on room air. Blood cultures reveal no growth. White count 10.7. Hemoglobin 14.4. Creatinine 0.65. He's been maintained on DuoNeb inhalations, Pulmicort and Perforomist inhalations, IV Solu-Medrol. Antibiotics in the form of Vibramycin. Objective - Vital Signs Vital signs: Vital Signs Temp 97.9 F 03/13/19 06:36 Pulse 120 H 03/13/19 14:21 Resp 16 03/13/19 06:36 BP 124/68 03/13/19 06:36 Pulse Ox 93 L 03/13/19 14:21 Intake & Output 03/12/19 03/13/19 03/13/19 18:59 06:59 18:59 Intake Total 240 Balance 240 Intake: Oral 240 Other: Voiding Method Toilet Toilet Toilet # Voids 2 2 - Exam GENERAL EXAM: Alert, very pleasant, 58-year-old gentleman, on 4 L of oxygen with pulse ox of 94% dyspneic but comfortable in no apparent distress. HEAD: Normocephalic/atraumatic. EYES: Normal reaction of pupils, equal size. Conjunctiva pink, sclera white. NOSE: Clear with pink turbinates. THROAT: No erythema or exudates. NECK: No masses, no JVD, no thyroid enlargement, no adenopathy. CHEST: No chest wall deformity. Symmetrical expansion. LUNGS: Equal air entry with scattered rhonchi, wheezing CVS: Regular rate and rhythm, normal S1 and S2, no gallops, no murmurs, no rubs ABDOMEN: Soft, nontender. No hepatosplenomegaly, normal bowel sounds, no guarding or rigidity. EXTREMITIES: No clubbing, no edema, no cyanosis, 2+ pulses and upper and lower extremities. MUSCULOSKELETAL: Muscle strength and tone normal. SPINE: No scoliosis or deformity SKIN: No rashes CENTRAL NERVOUS SYSTEM: No focal deficits, tone is normal in all 4 extremities. PSYCHIATRIC: Alert and oriented -3. Appropriate affect. Intact judgment and insight. - Labs CBC & Chem 7: 03/13/19 08:07 03/13/19 08:07 Labs: Abnormal Lab Results - Last 24 Hours (Table) 03/12/19 03/12/19 03/13/19 Range/Units 16:54 20:55 07:20 WBC (3.8-10.6) k/uL Neutrophils # (1.3-7.7) k/uL Lymphocytes # (1.0-4.8) k/uL BUN (9-20) mg/dL Creatinine (0.66-1.25) mg/dL Glucose (74-99) mg/dL POC Glucose (mg/dL) 169 H 144 H 138 H (75-99) mg/dL Calcium (8.4-10.2) mg/dL 03/13/19 03/13/19 03/13/19 Range/Units 08:07 08:07 11:47 WBC 10.7 H (3.8-10.6) k/uL Neutrophils # 9.4 H (1.3-7.7) k/uL Lymphocytes # 0.8 L (1.0-4.8) k/uL BUN 21 H (9-20) mg/dL Creatinine 0.65 L (0.66-1.25) mg/dL Glucose 140 H (74-99) mg/dL POC Glucose (mg/dL) 133 H (75-99) mg/dL Calcium 8.1 L (8.4-10.2) mg/dL Microbiology - Last 24 Hours (Table) 03/09/19 17:43 Blood Culture - Preliminary Blood No Growth after 72 hours 03/09/19 12:44 Blood Culture - Preliminary Blood No Growth after 72 hours Assessment and Plan Assessment: #1. Acute exacerbation of chronic Active Pulmonary Disease Triggered by Influenza A Infection #2. No Clear Cut Evidence of Pneumonia Seen on the Chest X-Ray #3. Previous History of Heavy Tobacco Use #4. History of Chronic Obstructive Pulmonary Disease #5. Prior history of pneumonia Plan: The patient was seen and evaluated by Dr. Braden. He is cleared for discharge from the pulmonary standpoint. Continues DuoNeb inhalations, Symbicort, prednisone taper starting at 40 mg for 4 days. Complete course of antibiotics. May require home oxygen. Follow-up in our office in 1-2 weeks' time. He is encouraged to call sooner with any recurrence of symptoms or other questions or concerns. I, the cosigning physician, performed a history & physical examination of the patient. Lungs sounds scattered rhonchi, wheeze, diminished Maintaining good O2 saturations in the 90s on 4 L/m per nasal cannula I discussed the assessment and plan of care with my nurse practitioner, Bree Rosa. I attest to the above note as dictated by her.
== END 2019-03-13 15:22 | disposition home or self-care (01) | DRG 193 ==
LOC: EC 10:01 → 6NMEDSUR 13:29
PROVIDERS: ADMIT Family Medicine; ATTEND Family Medicine
DX: J10.08 Influenza due to other identified influenza virus with other specified pneumonia (principal); J96.01 Acute respiratory failure with hypoxia; J96.02 Acute respiratory failure with hypercapnia; J12.89 Other viral pneumonia; J44.0 Chronic obstructive pulmonary disease with (acute) lower respiratory infection; J44.1 Chronic obstructive pulmonary disease with (acute) exacerbation; K21.9 Gastro-esophageal reflux disease without esophagitis; K59.00 Constipation, unspecified; M19.041 Primary osteoarthritis, right hand; M19.042 Primary osteoarthritis, left hand; Z79.51 Long term (current) use of inhaled steroids; Z79.52 Long term (current) use of systemic steroids; Z82.49 Family history of ischemic heart disease and other diseases of the circulatory system; Z87.01 Personal history of pneumonia (recurrent); Z87.891 Personal history of nicotine dependence; Z88.0 Allergy status to penicillin; Z90.49 Acquired absence of other specified parts of digestive tract; Z90.89 Acquired absence of other organs; Z98.890 Other specified postprocedural states; Z82.61 Family history of arthritis
CPT/HCPCS: 36415; 71046; 80048; 80053; 83605; 83735; 85025; 86140; 87040; 87502; 94640; 94760; 96374; 96375; 99285

== ENCOUNTER → 2019-04-20 | Outpatient (CLI) | payer OTHER ==
--- NOTE | 2019-04-20 10:41 | XR ---
EXAMINATION TYPE: XR chest 2V DATE OF EXAM: 04/20/2019 COMPARISON: Prior chest x-ray August 09, 2019. HISTORY: History of COPD with recent pneumonia. TECHNIQUE: Frontal and lateral views of the chest are obtained. FINDINGS: Background chronic emphysematous and parenchymal fibrotic changes seen bilaterally more pro minent in the lower lungs is redemonstrated. There is no new suspicious focal air space opacity, pleu ral effusion, or pneumothorax seen. The cardiac silhouette size remains within normal limits. The osseous structures are intact. IMPRESSION: Chronic emphysematous and parenchymal fibrotic changes without acute pulmonary process.
== END | disposition home or self-care (01) ==
LOC: RAD 10:25
PROVIDERS: ATTEND Family Medicine
DX: J43.9 Emphysema, unspecified (principal)
CPT/HCPCS: 71046

== ENCOUNTER → 2019-07-29 | Outpatient (CLI) | payer BC ==
--- NOTE | 2019-07-29 15:21 | CT ---
EXAMINATION TYPE: CT chest wo con DATE OF EXAM: 07/29/2019 COMPARISON: None HISTORY: Chronic respiratory failure CT DLP: 167 mGycm, Automated exposure control for dose reduction was used. CONTRAST: None TECHNIQUE: Axial images were obtained at 1 mm thick sections at 10 mm intervals. This will limit po rtions of the examination which may not be visualized within the [id number]. Images were obtained in the prone and supine views. FINDINGS: Portion of the thyroid visualized is normal. No suspicious lung nodules or focal infiltrat es are present. Extensive pulmonary fibrosis is evident within the lung bases. Some atelectatic changes within the de pendent portions of the lung bases. Emphysematous changes are present bilaterally. Some irregular densities in the periphery of the left lower lobe measuring 1.7 x 1.0 cm. Series 7 ab ge 38. No enlarged mediastinal or hilar adenopathy is evident. The ascending aorta diameter at the level o f the main pulmonary artery is 2.9 cm. The main pulmonary artery diameter at the bifurcation is 2.7 cm. There is some fullness in the left perihilar region slightly greater than expected. Recommend standar d CT chest to evaluate for lymphadenopathy or underlying mass. Limited CT sections are obtained through the upper abdomen. Abdomen is essentially unremarkable. Note is made of some left axillary lymphadenopathy most prominent of which measures 1.5 cm. IMPRESSIONS: 1. Pulmonary fibrosis at the lung bases. 2. Some ill-defined fullness in the left perihilar region greater than expected. Recommend standard C T chest for additional evaluation of underlying mass or adenopathy. 3. An irregular mass may be in the posterior lateral left lung base. This could be further evaluated with the standard CT examination.
== END | disposition home or self-care (01) ==
LOC: RADCTMAIN 13:59
PROVIDERS: ATTEND Internal Medicine Critical Care Medicine
DX: J96.11 Chronic respiratory failure with hypoxia (principal); J84.10 Pulmonary fibrosis, unspecified; Z88.0 Allergy status to penicillin
CPT/HCPCS: 71250

== ENCOUNTER → 2019-10-06 | Outpatient (CLI) | payer BC, OTHER | END | disposition home or self-care (01) | LOC: CPPFTMAIN 13:22 | PROVIDERS: ATTEND Internal Medicine Critical Care Medicine | DX: J44.9 Chronic obstructive pulmonary disease, unspecified (principal); R94.2 Abnormal results of pulmonary function studies | CPT/HCPCS: 94060; 94726; 94729 ==

== ENCOUNTER → 2020-02-05 | Day surgery (SDC) | payer BC, OTHER ==
[2020-02-04 10:35] VITALS: BMI 24.4
[~2020-02-05] MED LIST: LACTATED RINGERS 1,000 ML IV ONE; LACTATED RINGERS 1,000 ML IV SCH; LIDOCAINE 1% (10MG/ML) FOR IV START INTRADERMA ONE; PROPOFOL 10 MG/ML 20 ML VIAL IV ONE
[2020-02-05 09:42] LABS: Glucose,Whole Blood 86 mg/dL (75-99)
[2020-02-05 09:44] VITALS: TEMP 97.9
--- NOTE | 2020-02-05 10:13 | P.PCN ---
Date of Procedure: 02/05/20 Preoperative Diagnosis: Screening Postoperative Diagnosis: Internal hemorrhoids, otherwise normal colon Procedure(s) Performed: Colonoscopy Anesthesia: MAC Surgeon: Marycruz Mason Pathology: none sent Condition: stable Disposition: same day Indications for Procedure: 59-year-old male presents today for screening colonoscopy. His last endoscopy was over 10 years ago. He denies any family history of colon cancer. The patient does have a history of pulmonary fibrosis and is on a potential transplant list for lung transplant and requires colonoscopy prior. He was explained the risks, benefits and alternatives to the procedure and did provide consent prior to attending the endoscopy suite. Operative Findings: Internal hemorrhoids Description of Procedure: The patient was brought into the endoscopy suite and placed in left lateral decubitus position. Adequate sedation was achieved using conscious sedation. A digital rectal exam was performed and mild internal hemorrhoids were palpated. An endoscope was then placed in the rectum and advanced to the cecum as identified by landmarks including the appendiceal orifice and the ileocecal valve. The prep was good. The colonoscope was then slowly withdrawn, examining for any mucosal abnormalities. The cecum, ascending, transverse, descending and sigmoid colon were visualized adequately. There were no large neoplastic lesions throughout the colon. There were no obvious polyps. There was no evidence of diverticulosis. Retroflex and was performed in the rectum and mild internal hemorrhoids were visible. Excess air was removed, the colonoscope withdrawn and the procedure terminated. The patient was then transferred to the recovery unit in stable condition. Repeat colonoscopy should be performed in 10 years.
[2020-02-05 10:37] VITALS: BP 107/70; RESP 20
[2020-02-05 11:02] VITALS: PULSE 88
== END | disposition home or self-care (01) ==
LOC: ORWHC2ENDO 09:04
PROVIDERS: ATTEND Surgery
DX: Z12.11 Encounter for screening for malignant neoplasm of colon (principal); K64.8 Other hemorrhoids; J84.10 Pulmonary fibrosis, unspecified; J44.9 Chronic obstructive pulmonary disease, unspecified; K08.89 Other specified disorders of teeth and supporting structures; M19.90 Unspecified osteoarthritis, unspecified site; Z90.49 Acquired absence of other specified parts of digestive tract; Z90.89 Acquired absence of other organs; Z98.890 Other specified postprocedural states; Z79.899 Other long term (current) drug therapy; Z79.51 Long term (current) use of inhaled steroids; Z79.52 Long term (current) use of systemic steroids; Z88.0 Allergy status to penicillin; Z99.81 Dependence on supplemental oxygen
CPT/HCPCS: G0121; J2704; 45378

== ENCOUNTER → 2021-12-13 | Outpatient (CLI) | payer BC, MEDICARE, OTHER ==
--- NOTE | 2021-12-13 13:59 | CT ---
EXAMINATION TYPE: CT abdomen w con DATE OF EXAM: 12/13/2021 COMPARISON: None. HISTORY: diarrhea x1 month CT DLP: 868.9 mGycm Automated exposure control for dose reduction was used. TECHNIQUE: Helical acquisition of images was performed from the lung bases through the top of iliac crest to include entire abdomen. CONTRAST: Performed with Oral Contrast and with IV Contrast, patient injected with 70 mL of Isovue 300. FINDINGS: LUNG BASES: Small left pleural fluid collection does not completely layer dependently. Surgical allen es anterior right lung base with adjacent small to tiny pleural fluid collection does not layer depen dently. Mild bibasilar linear scarring and/or atelectasis. Overlying sternal wires and mediastinal cl ips are partially imaged. LIVER/GB: Tiny hypodense lesion anterior liver axial image 15 is presumed benign. PANCREAS: No significant abnormality is seen. SPLEEN: No significant abnormality is seen. ADRENALS: No significant abnormality is seen. KIDNEYS: Extrarenal pelvis on the right. BOWEL: Oral contrast reaches level of the cecum. No suspicious small or large bowel dilatation. Div erticula in the left colon are noted. No CT evidence for acute diverticulitis. LYMPH NODES: No significant abnormality is seen. OSSEOUS STRUCTURES: Moderate multilevel spurring in the visualized spine. Pbjhcrsg-rh-[id number] disc sp karissa narrowing with vacuum disc phenomenon at L5-S1 level. Slight spondylolisthesis lower lumbar spine with facet arthropathy. FREE AIR: No free air is visualized. OTHER: No significant abnormality. IMPRESSION: Source of diarrhea not identified.
== END | disposition home or self-care (01) ==
LOC: RADCTMAIN 12-12 07:22
DX: R19.7 Diarrhea, unspecified (principal)
CPT/HCPCS: 74160; Q9967 ×2

== ENCOUNTER 2022-03-16 15:13 | Emergency (ER) | payer BC, MEDICARE ==
--- NOTE | 2022-03-16 15:54 | ED ---
General Adult HPI - General Chief complaint: Upper Respiratory Infection Stated complaint: sent by PCP-covid infusion Time Seen by Provider: 03/16/22 15:41 Source: patient, family Mode of arrival: ambulatory Limitations: no limitations - History of Present Illness Initial comments: Patient was sent to the ED by his primary care provider for remdesivir IV infusion treatment after having a positive Covid test today. Patient has a history of bilateral lung transplant, and he states that he developed symptoms of "a head cold" today. Patient reports having symptoms of a mild cough, congestion and sore throat. Patient contacted his lung transplant service at the [facility], and they advised that he come to the ED for remdesivir IV infusion therapy (200 mg IVPB today, 100 mg IVPB tomorrow and 100 mg IVPB the following day). Dr. Aguilar (ED physician) took report from the patient's PCP (Dr. Paredes) stating that the patient was being sent to the ED solely for a single dose of IV remdesivir today. An order for remdesivir 200mg IVPB was placed by the patient's PCP service and received in the ED by fax. Patient denies having any pain, fever or chills, headache, neck pain or stiffness, dysphagia, chest pain, dyspnea, hemoptysis, palpitations, dizziness, abdominal pain, nausea/vomiting/diarrhea, or any other symptoms or complaints. - Related Data Home Medications Medication Instructions Recorded Confirmed Albuterol Inhaler [Ventolin Hfa 1 - 2 puff INHALATION RT-QID PRN 03/09/19 02/04/20 Inhaler] Budesonide-Formot 160-4.5 Mcg 2 puff INHALATION RT-BID 03/09/19 02/04/20 [Symbicort 160-4.5 Mcg Inhaler] Ipratropium/Albuterol Sulfate 1 puff INHALATION RT-QID 03/09/19 02/04/20 [Combivent Respimat Inhaler] Pirfenidone [Esbriet] 801 mg PO AC-TID 02/04/20 02/04/20 Tiotropium 18 Mcg/Puff [Spiriva] 1 puff INHALATION DAILY 02/04/20 02/04/20 predniSONE 2 mg PO DAILY 02/04/20 02/04/20 Allergies Allergy/AdvReac Type Severity Reaction Status Date / Time Penicillins Allergy Rash/Hives Verified 03/16/22 15:20 Review of Systems ROS Statement: Those systems with pertinent positive or pertinent negative responses have been documented in the HPI. ROS Other: All systems not noted in ROS Statement are negative. Past Medical History Past Medical History: COPD, Osteoarthritis (OA), Pneumonia, Skin Disorder Additional Past Medical History / Comment(s): pulmonary fibrosis,, L sided sciatica, uses oxygen at 2L PRN, eczema, psoriasis, History of Any Multi-Drug Resistant Organisms: None Reported Past Surgical History: Appendectomy, Orthopedic Surgery, Tonsillectomy Additional Past Surgical History / Comment(s): R shoulder rotator cuff surgery, R knee arthroscopic surgery to remove a spur, colonoscopy. Past Anesthesia/Blood Transfusion Reactions: No Reported Reaction Past Psychological History: No Psychological Hx Reported Smoking Status: Former smoker Past Alcohol Use History: None Reported Past Drug Use History: None Reported - Past Family History Father Family Medical History: Myocardial Infarction (IN) Additional Family Medical History / Comment(s): Father of a IN at the age of 67yrs. Mother Family Medical History: No Reported History Additional Family Medical History / Comment(s): . General Exam Limitations: no limitations General appearance: alert, in no apparent distress Head exam: Present: atraumatic, normocephalic Eye exam: Present: normal appearance, EOMI ENT exam: Present: normal oropharynx, mucous membranes moist Neck exam: Present: other (Trachea is in midline). Absent: tenderness Respiratory exam: Present: normal lung sounds bilaterally. Absent: respiratory distress, wheezes, rales, rhonchi, stridor Cardiovascular Exam: Present: regular rate, normal rhythm, normal heart sounds, other (Normal radial pulses bilaterally) GI/Abdominal exam: Present: soft. Absent: distended, tenderness, guarding Extremities exam: Absent: tenderness, pedal edema, calf tenderness Neurological exam: Present: alert, oriented X3. Absent: motor sensory deficit Psychiatric exam: Present: normal affect, normal mood Skin exam: Present: warm, dry, intact, normal color Course Vital Signs 03/16/22 03/16/22 03/16/22 15:15 16:52 18:39 Temperature 97.8 F 98.9 F Pulse Rate 92 85 83 Respiratory 18 18 16 Rate Blood Pressure 129/76 130/84 142/85 O2 Sat by Pulse 96 96 Oximetry Medical Decision Making - Medical Decision Making Was pt. sent in by a medical professional or institution (, SHAUNNA, INFORMATICS APPLICATION ANALYST, urgent care, hospital, or half-way...) When possible be specific @ -Patient was sent to the ED by his primary care provider (Dr. Paredes) for IV remdesivir infusion therapy (Covid +) after discussion with the patient's lung transplant service. Did you speak to anyone other than the patient for history (EMS, parent, family, police, friend...)? What history was obtained from this source @ -No Did you review nursing and triage notes (agree or disagree)? Why? @ -I reviewed and agree with nursing and triage notes Were old charts reviewed (outside hosp., previous admission, EMS record, old EKG, old radiological studies, urgent care reports/EKG's, half-way records)? Report findings @ -No old charts were reviewed Differential Diagnosis (chest pain, altered mental status, abdominal pain women, abdominal pain men, vaginal bleeding, weakness, fever, dyspnea, syncope, headache, dizziness, GI bleed, back pain, seizure, CVA, palpatations, mental health)? @ -Upper respiratory infection, influenza, Covid, viral illness, lung transplant patient EKG interpreted by me (3pts min.). @ -None done X-rays interpreted by me (1pt min.). @ -None done CT interpreted by me (1pt min.). @ -None done U/S interpreted by me (1pt. min.). @ -None done What testing was considered but not performed or refused? (CT, X-rays, U/S, labs)? Why? @ -None What meds were considered but not given or refused? Why? @ -None Did you discuss the management of the patient with other professionals (professionals i.e. , SHAUNNA, INFORMATICS APPLICATION ANALYST, lab, RT, psych nurse, social studies teacher, filter washer and presser, teacher, chief lending officer, business case analyst)? Give summary @ -No Was smoking cessation discussed for >3mins.? @ -No Was critical care preformed (if so, how long)? @ -No Were there social determinants of health that impacted care today? How? (Homelessness, low income, unemployed, alcoholism, drug addiction, transportation, low edu. Level, literacy, decrease access to med. care, long term, rehab)? @ -No Was there de-escalation of care discussed even if they declined (Discuss DNR or withdrawal of care, Hospice)? DNR status @ -No What co-morbidities impacted this encounter? (DM, HTN, Smoking, COPD, CAD, Cancer, CVA, ARF, Chemo, Hep., AIDS, mental health diagnosis, sleep apnea, morbid obesity)? @ -Bilateral lung transplant Was patient admitted / discharged? Hospital course, mention meds given and route, prescriptions, significant lab abnormalities, going to OR and other pertinent info. @ -Patient was given a dose of IV remdesivir in the ED after pharmacy had a discussion with Dr. Davis (medication order was placed by Dr. Davis). Patient had no reaction to the medication. Patient is breathing comfortably in the ED with a normal room air oxygen saturation. Patient is afebrile. Patient discharged home with clear return and follow-up instructions. Patient will return to the ED tomorrow for his second dose of IV remdesivir. Undiagnosed new problem with uncertain prognosis? @ -No Drug Therapy requiring intensive monitoring for toxicity (Heparin, Nitro, Insulin, Cardizem)? @ -No Were any procedures done? @ -No Diagnosis/symptom? @ -COVID-19 infection Acute, or Chronic, or Acute on Chronic? @ -Acute Uncomplicated (without systemic symptoms) or Complicated (systemic symptoms)? @ -Uncomplicated Side effects of treatment? @ -No Exacerbation, Progression, or Severe Exacerbation? @ -No Poses a threat to life or bodily function? How? (Chest pain, [place], [place], pneumonia, PE, COPD, DKA, ARF, appy, cholecystitis, CVA, Diverticulitis, Homicidal, Suicidal, threat to staff... and all critical care pts) @ -No Disposition Clinical Impression: COVID-19 Disposition: HOME SELF-CARE Condition: Stable Instructions (If sedation given, give patient instructions): Coronavirus Disease 2019 (COVID-19) Additional Instructions: Return to the ER immediately should you develop a fever, chest pain, shortness of breath, feeling dizzy or faint, or new or worsening symptoms. Follow up closely with your primary care provider. Is patient prescribed a controlled substance at d/c from ED?: No Referrals: Alejandro Paredes Jr, [Primary Care Provider] - 1-2 days Time of Disposition: 18:40
[2022-03-16] MEDS ORDERED: REMDESIVIR 200 MG in SODIUM CHLORIDE 0.9% 250 ML IVPB ONE (17:00)
[2022-03-17 15:56] VITALS: RESP 18
[2022-03-17] MEDS: REMDESIVIR 100 MG in SODIUM CHLORIDE 0.9% 250 ML IVPB SCH (15:56)
[2022-03-18] MEDS: REMDESIVIR 100 MG in SODIUM CHLORIDE 0.9% 250 ML IVPB SCH (15:47)
[2022-03-18 15:50] VITALS: TEMP 98.3
[2022-03-18 17:27] VITALS: BP 126/81; PULSE 91
== END 2022-03-16 18:42 | disposition home or self-care (01) ==
LOC: EC 15:13
DX: U07.1 COVID-19 (principal); J44.9 Chronic obstructive pulmonary disease, unspecified; M19.90 Unspecified osteoarthritis, unspecified site; Z87.891 Personal history of nicotine dependence; Z88.0 Allergy status to penicillin; Z79.51 Long term (current) use of inhaled steroids; Z79.899 Other long term (current) drug therapy
CPT/HCPCS: 99283; 96365; J0248

== ENCOUNTER 2023-04-29 12:42 | Emergency (ER) | payer BC, MEDICARE, OTHER ==
[2023-04-29 13:09] LABS: Basophils % (A) 0 %; Eosinophils # (A) 0.1 k/uL (0-0.7); Eosinophils % (A) 1 %; HCT 42.4 % (39.0-53.0); HGB 13.5 gm/dL (13.0-17.5); Lymphocytes # (A) 1.4 k/uL (1.0-4.8); Lymphocytes % (A) 21 %; MCH 28.3 pg (25.0-35.0); MCHC 31.9 g/dL (31.0-37.0); MCV 88.6 fL (80.0-100.0); Monocytes # (A) 0.4 k/uL (0-1.0); Monocytes % (A) 6 %; Neutrophils # (A) 4.6 k/uL (1.3-7.7); Neutrophils % (A) 70 %; Platelet Count 262 k/uL (150-450); RBC 4.79 m/uL (4.30-5.90); RDW 14.5 % (11.5-15.5); WBC 6.5 k/uL (3.8-10.6)
--- NOTE | 2023-04-29 13:18 | XR ---
EXAMINATION TYPE: XR chest 2V DATE OF EXAM: 04/29/2023 COMPARISON: 05/08/2019. HISTORY: Recent pneumonia. TECHNIQUE: Frontal and lateral views of the chest are obtained. IMPRESSION: There are small bilateral pleural effusions. Patchy parenchymal changes are seen within the right santa g base which would raise the possibility of pneumonia or resolving pneumonia. Some mild interstitial changes and airspace changes are also seen in the left lung base. Follow-up to resolution is recommen ded. Cardiac silhouette and pulmonary vessels are within normal limits.
[2023-04-29 13:19] LABS: ALT 34 U/L (4-49); AST 34 U/L (17-59); African American GFR (CKD) 59 (>60 ml/min/1.73 sqM); Albumin 4.3 g/dL (3.5-5.0); Alkaline Phosphatase 60 U/L (38-126); Anion Gap 12 mmol/L; Blood Urea Nitrogen 19 mg/dL (9-20); Calcium 9.3 mg/dL (8.4-10.2); Carbon Dioxide 22 mmol/L (22-30); Chloride 106 mmol/L (98-107); Glucose 195 mg/dL (74-99); Magnesium 1.5 mg/dL (1.6-2.3); Non-African American GFR(CKD) 51 (>60 ml/min/1.73 sqM); Potassium 4.3 mmol/L (3.5-5.1); Sodium 140 mmol/L (137-145); Total Bilirubin 0.4 mg/dL (0.2-1.3); Total Protein 6.9 g/dL (6.3-8.2)
[2023-04-29 13:30] LABS: Partial Thromboplastin Time 22.6 sec (22.0-30.0); Prothrombin Time 10.9 sec (10.0-12.5)
--- NOTE | 2023-04-29 14:32 | ED ---
General Adult HPI - General Chief complaint: Chest Pain Stated complaint: Abn EKG Time Seen by Provider: 04/29/23 12:50 Source: patient, RN notes reviewed, old records reviewed Mode of arrival: ambulatory Limitations: no limitations - History of Present Illness Initial comments: This is a 62-year-old male who is presenting to the emergency department from [facility] for chest pain and some shortness of breath. According to the clinic his EKG showed QT prolongation so they were concerned and sent him in. Patient continues to have some chest discomfort he states it has been intermittent. Patient also has had a double lung transplant. Patient denies any fever chills or cough. Patient denies any radiation of the pain from the chest. Patient denies any abdominal pain. Patient denies headache patient [place] numbness or weakness - Related Data Home Medications Medication Instructions Recorded Confirmed predniSONE 5 mg PO DAILY 02/04/20 04/29/23 Albuterol Nebulized [Ventolin 2.5 mg INHALATION RT-Q4H PRN 04/29/23 04/29/23 Nebulized] Aspirin EC [Ecotrin Low Dose] 81 mg PO HS@0 04/29/23 04/29/23 Azithromycin [Zithromax] 250 mg PO MOWEFR 04/29/23 04/29/23 Calcium Carbonate/Vitamin 1 tab PO HS@189904/29/23 04/29/23 D3(Unknown Dose) Furosemide [Lasix] 5 mg PO MOFR 04/29/23 04/29/23 Magnesium(Unknown Dose) 1 tab PO DAILY 04/29/23 04/29/23 Melatonin 5 mg PO HS@0 04/29/23 04/29/23 Pantoprazole [Protonix] 40 mg PO HS@0 04/29/23 04/29/23 Rosuvastatin Calcium 5 mg PO HS@2200 04/29/23 04/29/23 Sulfamethox-Tmp 800-160Mg [Bactrim 1 tab PO DAILY 04/29/23 04/29/23 DS 800-160 mg] Tacrolimus [Prograf] 0.5 mg PO BID@0700,1900 04/29/23 04/29/23 Tacrolimus [Prograf] 1 mg PO BID@0700,1900 04/29/23 04/29/23 Triamcinolone 0.1% Ointment 1 applic TOPICAL DAILY 04/29/23 04/29/23 [Kenalog 0.1% Ointment] amLODIPine [Norvasc] 5 mg PO DAILY 04/29/23 04/29/23 mycophenolate mofetiL [Cellcept] 250 mg PO DAILY 04/29/23 04/29/23 polyethylene glycoL 3350 [Miralax] 17 gm PO DAILY 04/29/23 04/29/23 Allergies Allergy/AdvReac Type Severity Reaction Status Date / Time bee venom protein (honey bee) Allergy Rash/Hives Verified 04/29/23 14:30 Penicillins Allergy Rash/Hives Verified 04/29/23 14:30 Review of Systems ROS Statement: Those systems with pertinent positive or pertinent negative responses have been documented in the HPI. ROS Other: All systems not noted in ROS Statement are negative. Past Medical History Past Medical History: COPD, Hypertension, Osteoarthritis (OA), Pneumonia, Skin Disorder Additional Past Medical History / Comment(s): pulmonary fibrosis,, L sided sciatica, uses oxygen at 2L PRN, eczema, psoriasis, History of Any Multi-Drug Resistant Organisms: None Reported Past Surgical History: Appendectomy, Orthopedic Surgery, Tonsillectomy Additional Past Surgical History / Comment(s): R shoulder rotator cuff surgery, R knee arthroscopic surgery to remove a spur, colonoscopy. bilat lung transplant Past Anesthesia/Blood Transfusion Reactions: No Reported Reaction Past Psychological History: No Psychological Hx Reported Smoking Status: Former smoker Past Alcohol Use History: None Reported Past Drug Use History: None Reported - Past Family History Father Family Medical History: Myocardial Infarction ([place]) Additional Family Medical History / Comment(s): Father of a [place] at the age of 67yrs. Mother Family Medical History: No Reported History Additional Family Medical History / Comment(s): . General Exam - General Exam Comments Initial Comments: GENERAL: Patient is well-developed and well-nourished. Patient is nontoxic and well- hydrated and is in mild distress. ENT: Neck is soft and supple. No significant lymphadenopathy is noted. Oropharynx is clear. Moist mucous membranes. Neck has full range of motion without eliciting any pain. EYES: The sclera were anicteric and conjunctiva were pink and moist. Extraocular movements were intact and pupils were equal round and reactive to light. Eyelids were unremarkable. PULMONARY: Unlabored respirations. Good breath sounds bilaterally. No audible rales rhonchi or wheezing was noted. CARDIOVASCULAR: There is a regular rate and rhythm without any murmurs gallops or rubs. ABDOMEN: Soft and nontender with normal bowel sounds. SKIN: Skin is clear with no lesions or rashes and otherwise unremarkable. NEUROLOGIC: Patient is alert and oriented x3. Cranial nerves II through XII are grossly intact. Motor and sensory are also intact. Normal speech, volume and content. Symmetrical smile. MUSCULOSKELETAL: Normal extremities with adequate strength and full range of motion. No lower extremity swelling or edema. No calf tenderness. LYMPHATICS: No significant lymphadenopathy is noted PSYCHIATRIC: Normal psychiatric evaluation. 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 Was pt. sent in by a medical professional or institution (, PA, DIRECTOR IMMUNOLOGY, urgent care, hospital, or usp...) When possible be specific @ -Patient was sent in by urgent care Did you speak to anyone other than the patient for history (EMS, parent, family, police, friend...)? What history was obtained from this source @ -No Did you review nursing and triage notes (agree or disagree)? Why? @ -I reviewed and agree with nursing and triage notes Were old charts reviewed (outside hosp., previous admission, EMS record, old EKG, old radiological studies, urgent care reports/EKG's, usp records)? Report findings @ -I reviewed the patient's old lab work and charts that they brought with them and old EKG. Differential Diagnosis (chest pain, altered mental status, abdominal pain women, abdominal pain men, vaginal bleeding, weakness, fever, dyspnea, syncope, headache, dizziness, GI bleed, back pain, seizure, CVA, palpatations, mental health, musculoskeletal)? @ -Differential Chest Pain: Stable Angina, Unstable Angina, STEMI, NSTEMI Aortic Dissection, Pneumothorax, Musculoskeletal, Esophageal Spasm GERD, Cholecystitis, Pancreatitis, Zoster, this is not meant to be an all-inclusive list. EKG interpreted by me (3pts min.). @ -As above X-rays interpreted by me (1pt min.). @ -None done CT interpreted by me (1pt min.). @ -None done U/S interpreted by me (1pt. min.). @ -None done What testing was considered but not performed or refused? (CT, X-rays, U/S, labs)? Why? @ -None What meds were considered but not given or refused? Why? @ -None Did you discuss the management of the patient with other professionals (professionals i.e. DrArabella, PA, DIRECTOR IMMUNOLOGY, lab, RT, psych nurse, social welfare research worker, warp doffer, teacher, chief investment officer, case worker)? Give summary @ -No Was smoking cessation discussed for >3mins.? @ -No Was critical care preformed (if so, how long)? @ -No Were there social determinants of health that impacted care today? How? (Homelessness, low income, unemployed, alcoholism, drug addiction, transportation, low edu. Level, literacy, decrease access to med. care, intermediate, rehab)? @ -No Was there de-escalation of care discussed even if they declined (Discuss DNR or withdrawal of care, Hospice)? DNR status @ -No What co-morbidities impacted this encounter? (DM, HTN, Smoking, COPD, CAD, Cancer, CVA, ARF, Chemo, Hep., AIDS, mental health diagnosis, sleep apnea, morbid obesity)? @ -None Was patient admitted / discharged? Hospital course, mention meds given and route, prescriptions, significant lab abnormalities, going to OR and other pertinent info. @ -Patient's lab work came back all within normal range. Patient does have slight QT prolongation on the EKG Dr. Luevano did not think it was very significant but I informed the patient that they need to inform his doctor so they are aware what meds they can give him. Patient stated that chest pain has been on for weeks and is no different today and he did not want to stay though I did offer him admission he stated he would follow-up with his own primary medical care doctor Undiagnosed new problem with uncertain prognosis? @ -No Drug Therapy requiring intensive monitoring for toxicity (Heparin, Nitro, Insulin, Cardizem)? @ -No Were any procedures done? @ -No Diagnosis/symptom? @ -Atypical chest pain Acute, or Chronic, or Acute on Chronic? @ -Acute Uncomplicated (without systemic symptoms) or Complicated (systemic symptoms)? @ -Complicated Side effects of treatment? @ -No Exacerbation, Progression, or Severe Exacerbation? @ -No Poses a threat to life or bodily function? How? (Chest pain, [place], [place], pneumonia, PE, COPD, DKA, ARF, appy, cholecystitis, CVA, Diverticulitis, Homicidal, Suicidal, threat to staff... and all critical care pts) @ -Yes this could lead to an [place] and endorgan dysfunction Diagnosis/symptom? @ -QT prolongation Acute, or Chronic, or Acute on Chronic? @ -Acute Uncomplicated (without systemic symptoms) or Complicated (systemic symptoms)? @ -Uncomplicated Side effects of treatment? @ -None Exacerbation, Progression, or Severe Exacerbation] @ -No Poses a threat to life or bodily function? @ -No - Lab Data Result diagrams: 04/29/23 12:50 04/29/23 12:50 Lab Results 04/29/23 04/29/23 04/29/23 Range/Units 12:50 12:50 12:50 WBC 6.5 (3.8-10.6) k/uL RBC 4.79 (4.30-5.90) m/uL Hgb 13.5 (13.0-17.5) gm/dL Hct 42.4 (39.0-53.0) % MCV 88.6 (80.0-100.0) fL MCH 28.3 (25.0-35.0) pg MCHC 31.9 (31.0-37.0) g/dL RDW 14.5 (11.5-15.5) % Plt Count 262 (150-450) k/uL MPV 7.0 Neutrophils % 70 % Lymphocytes % 21 % Monocytes % 6 % Eosinophils % 1 % Basophils % 0 % Neutrophils # 4.6 (1.3-7.7) k/uL Lymphocytes # 1.4 (1.0-4.8) k/uL Monocytes # 0.4 (0-1.0) k/uL Eosinophils # 0.1 (0-0.7) k/uL Basophils # 0.0 (0-0.2) k/uL PT 10.9 (10.0-12.5) sec INR 1.0 (<1.2) APTT 22.6 (22.0-30.0) sec Sodium 140 (137-145) mmol/L Potassium 4.3 (3.5-5.1) mmol/L Chloride 106 (98-107) mmol/L Carbon Dioxide 22 (22-30) mmol/L Anion Gap 12 mmol/L BUN 19 (9-20) mg/dL Creatinine 1.45 H (0.66-1.25) mg/dL Est GFR (CKD-EPI)AfAm 59 (>60 ml/min/1.73 sqM) Est GFR (CKD-EPI)NonAf 51 (>60 ml/min/1.73 sqM) Glucose 195 H (74-99) mg/dL Calcium 9.3 (8.4-10.2) mg/dL Magnesium 1.5 L (1.6-2.3) mg/dL Total Bilirubin 0.4 (0.2-1.3) mg/dL AST 34 (17-59) U/L ALT 34 (4-49) U/L Alkaline Phosphatase 60 (38-126) U/L Troponin I (0.000-0.034) ng/mL NT-Pro-B Natriuret Pep pg/mL Total Protein 6.9 (6.3-8.2) g/dL Albumin 4.3 (3.5-5.0) g/dL 04/29/23 04/29/23 Range/Units 12:50 12:50 WBC (3.8-10.6) k/uL RBC (4.30-5.90) m/uL Hgb (13.0-17.5) gm/dL Hct (39.0-53.0) % MCV (80.0-100.0) fL MCH (25.0-35.0) pg MCHC (31.0-37.0) g/dL RDW (11.5-15.5) % Plt Count (150-450) k/uL MPV Neutrophils % % Lymphocytes % % Monocytes % % Eosinophils % % Basophils % % Neutrophils # (1.3-7.7) k/uL Lymphocytes # (1.0-4.8) k/uL Monocytes # (0-1.0) k/uL Eosinophils # (0-0.7) k/uL Basophils # (0-0.2) k/uL PT (10.0-12.5) sec INR (<1.2) APTT (22.0-30.0) sec Sodium (137-145) mmol/L Potassium (3.5-5.1) mmol/L Chloride (98-107) mmol/L Carbon Dioxide (22-30) mmol/L Anion Gap mmol/L BUN (9-20) mg/dL Creatinine (0.66-1.25) mg/dL Est GFR (CKD-EPI)AfAm (>60 ml/min/1.73 sqM) Est GFR (CKD-EPI)NonAf (>60 ml/min/1.73 sqM) Glucose (74-99) mg/dL Calcium (8.4-10.2) mg/dL Magnesium (1.6-2.3) mg/dL Total Bilirubin (0.2-1.3) mg/dL AST (17-59) U/L ALT (4-49) U/L Alkaline Phosphatase (38-126) U/L Troponin I <0.012 (0.000-0.034) ng/mL NT-Pro-B Natriuret Pep 258 pg/mL Total Protein (6.3-8.2) g/dL Albumin (3.5-5.0) g/dL Disposition Clinical Impression: Atypical chest pain, Prolonged Q-T interval on ECG Disposition: HOME SELF-CARE Condition: Good Instructions (If sedation given, give patient instructions): Chest Pain (ED) Is patient prescribed a controlled substance at d/c from ED?: No Referrals: [facility] [Primary Care Provider] - 1-2 days Time of Disposition: 16:24
[2023-04-29] MEDS: MAGNESIUM SULFATE-D5W PMX 1 GM in DEXTROSE/WATER 1 100ML.BAG IVPB ONE (14:46)
[2023-04-29 15:48] VITALS: RESP 16
[2023-04-29 16:53] VITALS: BP 140/95; PULSE 79; TEMP 98
== END 2023-04-29 16:33 | disposition home or self-care (01) ==
LOC: EC 12:42
DX: I45.81 Long QT syndrome (principal); I10 Essential (primary) hypertension; Z87.891 Personal history of nicotine dependence
CPT/HCPCS: 36415; 93005; 83880; 80053; 83735; 84484; 85025; 85610; 85730; 71046; 99285; 96365; J3475

== ENCOUNTER 2023-05-24 17:43 | Emergency (ER) | payer MEDICARE, OTHER ==
[2023-05-24 18:39] VITALS: TEMP 97.8
[2023-05-24 18:39] LABS: Basophils % (A) 1 %; Eosinophils # (A) 0.3 k/uL (0-0.7); Eosinophils % (A) 3 %; HCT 42.6 % (39.0-53.0); HGB 13.9 gm/dL (13.0-17.5); Lymphocytes # (A) 3.1 k/uL (1.0-4.8); Lymphocytes % (A) 39 %; MCH 28.2 pg (25.0-35.0); MCHC 32.5 g/dL (31.0-37.0); MCV 86.5 fL (80.0-100.0); Monocytes # (A) 0.6 k/uL (0-1.0); Monocytes % (A) 7 %; Neutrophils # (A) 3.8 k/uL (1.3-7.7); Neutrophils % (A) 48 %; Platelet Count 253 k/uL (150-450); RBC 4.93 m/uL (4.30-5.90); RDW 14.2 % (11.5-15.5); WBC 7.9 k/uL (3.8-10.6)
[2023-05-24] MEDS: ACETAMINOPHEN TAB 500 MG TAB PO STA (18:43)
[2023-05-24] MEDS: SODIUM CHLORIDE 0.9% 500 ML 500 ML IV STA (18:45)
[2023-05-24 18:50] LABS: Partial Thromboplastin Time 22.7 sec (22.0-30.0); Prothrombin Time 10.8 sec (10.0-12.5)
[2023-05-24 18:54] LABS: ALT 33 U/L (4-49); AST 30 U/L (17-59); African American GFR (CKD) 50 (>60 ml/min/1.73 sqM); Albumin 4.2 g/dL (3.5-5.0); Alkaline Phosphatase 62 U/L (38-126); Anion Gap 11 mmol/L; Blood Urea Nitrogen 28 mg/dL (9-20); Calcium 9.5 mg/dL (8.4-10.2); Carbon Dioxide 23 mmol/L (22-30); Chloride 106 mmol/L (98-107); Glucose 110 mg/dL (74-99); Magnesium 1.6 mg/dL (1.6-2.3); Non-African American GFR(CKD) 43 (>60 ml/min/1.73 sqM); Sodium 140 mmol/L (137-145); Total Bilirubin 0.4 mg/dL (0.2-1.3)
--- NOTE | 2023-05-24 19:16 | ED ---
General Adult HPI - General Chief complaint: Chest Pain Stated complaint: Chest pain Time Seen by Provider: 05/24/23 18:21 Source: patient, RN notes reviewed, old records reviewed Mode of arrival: ambulatory Limitations: no limitations - History of Present Illness Initial comments: Is a 62-year-old male with past medical history remarkable for bilateral lung transplant, COPD, hypertension. Has been having 3 days of chest discomfort. Recently getting over some sort of upper respiratory viral infection. States he was coughing but that has improved. Since that time though has been having some lower anterior chest wall discomfort. States it is worse with movement and coughing. Somewhat pleuritic in nature. Denies shortness of breath. Denies fevers or chills. No other acute complaints at this time. Denies any recent long distance travel or lower extremity swelling. Presents for further evaluation. Pain is relatively unchanged over the last 3 days. - Related Data Home Medications Medication Instructions Recorded Confirmed predniSONE 5 mg PO DAILY 02/04/20 05/24/23 Albuterol Nebulized [Ventolin 2.5 mg INHALATION RT-Q4H PRN 04/29/23 05/24/23 Nebulized] Aspirin EC [Ecotrin Low Dose] 81 mg PO HS@2200 04/29/23 05/24/23 Azithromycin [Zithromax] 250 mg PO MOWEFR 04/29/23 05/24/23 Calcium Carbonate/Vitamin 1 tab PO HS@1900 04/29/23 05/24/23 D3(Unknown Dose) Furosemide [Lasix] 5 mg PO MOFR 04/29/23 05/24/23 Magnesium(Unknown Dose) 1 tab PO DAILY 04/29/23 05/24/23 Melatonin 5 mg PO HS@2200 04/29/23 05/24/23 Pantoprazole [Protonix] 40 mg PO HS@2200 04/29/23 05/24/23 Rosuvastatin Calcium 5 mg PO HS@2200 04/29/23 05/24/23 Sulfamethox-Tmp 800-160Mg [Bactrim 1 tab PO DAILY 04/29/23 05/24/23 DS 800-160 mg] Tacrolimus [Prograf] 0.5 mg PO BID@0700,1900 04/29/23 05/24/23 Tacrolimus [Prograf] 1 mg PO BID@0700,1900 04/29/23 05/24/23 Triamcinolone 0.1% Ointment 1 applic TOPICAL DAILY 04/29/23 05/24/23 [Kenalog 0.1% Ointment] amLODIPine [Norvasc] 5 mg PO DAILY 04/29/23 05/24/23 mycophenolate mofetiL [Cellcept] 250 mg PO DAILY 04/29/23 05/24/23 polyethylene glycoL 3350 [Miralax] 17 gm PO DAILY 04/29/23 05/24/23 fluorouraciL [Efudex] 1 applic TOPICAL BID 05/24/23 05/24/23 Allergies Allergy/AdvReac Type Severity Reaction Status Date / Time bee venom protein (honey bee) Allergy Rash/Hives Verified 05/24/23 19:53 Penicillins Allergy Rash/Hives Verified 05/24/23 19:53 Review of Systems ROS Statement: Those systems with pertinent positive or pertinent negative responses have been documented in the HPI. Review of Systems: CONST: Denies fever EYES: Denies blurry vision ENT: Denies nasal congestion C/V: Endorses chest wall pain RESP: Denies shortness of breath GI: Denies abdominal pain : Denies dysuria SKIN: Denies rash. MSK: Denies joint pain. NEURO: Denies headache ROS Other: All systems not noted in ROS Statement are negative. Past Medical History Past Medical History: COPD, Hypertension, Osteoarthritis (OA), Pneumonia, Skin Disorder Additional Past Medical History / Comment(s): pulmonary fibrosis,, L sided sciatica, uses oxygen at 2L PRN, eczema, psoriasis, History of Any Multi-Drug Resistant Organisms: None Reported Past Surgical History: Appendectomy, Orthopedic Surgery, Tonsillectomy Additional Past Surgical History / Comment(s): R shoulder rotator cuff surgery, R knee arthroscopic surgery to remove a spur, colonoscopy. bilat lung transplant Past Anesthesia/Blood Transfusion Reactions: No Reported Reaction Past Psychological History: No Psychological Hx Reported Smoking Status: Former smoker Past Alcohol Use History: None Reported Past Drug Use History: None Reported - Past Family History Father Family Medical History: Myocardial Infarction ([place]) Additional Family Medical History / Comment(s): Father of a [place] at the age of 67yrs. Mother Family Medical History: No Reported History Additional Family Medical History / Comment(s): . General Exam - General Exam Comments Initial Comments: General: Appears in no acute distress. HEAD: Normal with no signs of head trauma. EYES: PERRLA, EOMI, conjunctiva normal, no discharge. ENT: Hearing grossly intact, normal oropharynx. RESPIRATORY: Clear breath sounds bilaterally. No wheezes, rales, or rhonchi. C/V: Regular rate and rhythm. S1 and S2 auscultated, no edema, peripheral pulses 2+ and intact throughout. Chest pain reproduced on palpation of the inferior anterior chest wall. No obvious deformities of the ribs palpated. ABD: Abd is soft, nontender, nondistended EXT: Normal range of motion, no obvious deformity SKIN: No rashes or lesions observed on exposed skin. NEURO: Alert and oriented x 4. Limitations: no limitations Course Vital Signs 05/24/23 05/24/23 05/24/23 17:51 17:53 18:31 Temperature 97.8 F Pulse Rate 104 H 86 Pulse Rate [ Solution Make Up Operator ] Respiratory 18 16 20 Rate Blood Pressure 152/88 150/102 O2 Sat by Pulse 96 98 Oximetry 05/24/23 05/24/23 18:34 19:29 Temperature Pulse Rate 89 Pulse Rate [ 80 Solution Make Up Operator ] Respiratory 15 Rate Blood Pressure 140/93 O2 Sat by Pulse 96 Oximetry Medical Decision Making - Medical Decision Making Was pt. sent in by a medical professional or institution (, PA, CATALYST UNIT OPERATOR, urgent care, hospital, or skilled nursing...) When possible be specific @ -No Did you speak to anyone other than the patient for history (EMS, parent, family, police, friend...)? What history was obtained from this source @ -No Did you review nursing and triage notes (agree or disagree)? Why? @ -I reviewed and agree with nursing and triage notes Were old charts reviewed (outside hosp., previous admission, EMS record, old EKG, old radiological studies, urgent care reports/EKG's, skilled nursing records)? Report findings @ -Old charts reviewed Differential Diagnosis (chest pain, altered mental status, abdominal pain women, abdominal pain men, vaginal bleeding, weakness, fever, dyspnea, syncope, headache, dizziness, GI bleed, back pain, seizure, CVA, palpatations, mental health, musculoskeletal)? @ -Differential Chest Pain: Stable Angina, Unstable Angina, STEMI, NSTEMI Aortic Dissection, Pneumothorax, Musculoskeletal, Esophageal Spasm GERD, Cholecystitis, Pancreatitis, Zoster, this is not meant to be an all-inclusive list. EKG interpreted by me (3pts min.). @ -As above X-rays interpreted by me (1pt min.). @ -None done CT interpreted by me (1pt min.). @ -CT angio of the chest negative for pulmonary embolism or other acute process. Patient has findings consistent with bilateral lung transplant. No obvious trauma or injury to the anterior chest wall. U/S interpreted by me (1pt. min.). @ -None done What testing was considered but not performed or refused? (CT, X-rays, U/S, labs)? Why? @ -None What meds were considered but not given or refused? Why? @ -None Did you discuss the management of the patient with other professionals (professionals i.e. , PA, CATALYST UNIT OPERATOR, lab, RT, psych nurse, healthcare social worker, data management associate, teacher, banking services officer, comp field case manager)? Give summary @ -No Was smoking cessation discussed for >3mins.? @ -No Was critical care preformed (if so, how long)? @ -No Were there social determinants of health that impacted care today? How? (Homelessness, low income, unemployed, alcoholism, drug addiction, transportation, low edu. Level, literacy, decrease access to med. care, shelter, rehab)? @ -No Was there de-escalation of care discussed even if they declined (Discuss DNR or withdrawal of care, Hospice)? DNR status @ -No What co-morbidities impacted this encounter? (DM, HTN, Smoking, COPD, CAD, Cancer, CVA, ARF, Chemo, Hep., AIDS, mental health diagnosis, sleep apnea, morbid obesity)? @ -None Was patient admitted / discharged? Hospital course, mention meds given and route, prescriptions, significant lab abnormalities, going to OR and other pertinent info. @ -Based on the patient's presentation and physical exam, he presents emergency department complaining of what appears to be musculoskeletal chest wall pain however it is pleuritic in nature. After long discussion, as this is somewhat atypical for him he has been ongoing for 3 days and we will screen the patient for possible blood clot considering his history. He was in agreement this plan. CT angio of the chest will be obtained. We also obtain cardiac workup. Patient was in agreement this plan. He will be given a 1 L fluid bolus as well as oral Tylenol for analgesia. Vital signs within acceptable limits. EKG showed no signs of acute ischemia. CT imaging negative for any obvious traumatic injury to the chest wall and negative for PE. Labs remarkable for CKD as well as an undetectable troponin. On reevaluation, patient is feeling improved. We did discuss and as it does seem to be a chest wall pain and likely secondary to his recent upper r espiratory coughing and it is reproducible on movement and on palpation I have low concern for cardiac cause at this time and he was in agreement. I did offer observation admission for cardiac monitoring however he declined and would like to go home. I believe this is reasonable. He will be discharged home at this time. I instructed the patient to follow up with their PCP in the next 1-3 days. I explained that the patient should return to the emergency department if they experience any worsening symptoms. Strict return precautions were discussed with the patient. The patient expressed understanding of these instructions. I answered all questions that the patient had. The patient was discharged home in good condition with their prescriptions and follow up information. Undiagnosed new problem with uncertain prognosis? @ -No Drug Therapy requiring intensive monitoring for toxicity (Heparin, Nitro, Insulin, Cardizem)? @ -No Were any procedures done? @ -No Diagnosis/symptom? @ -Chest wall pain Acute, or Chronic, or Acute on Chronic? @ -Acute Uncomplicated (without systemic symptoms) or Complicated (systemic symptoms)? @ -Uncomplicated Side effects of treatment? @ -No Exacerbation, Progression, or Severe Exacerbation? @ -No Poses a threat to life or bodily function? How? (Chest pain, [place], [place], pneumonia, PE, COPD, DKA, ARF, appy, cholecystitis, CVA, Diverticulitis, Homicidal, Suicidal, threat to staff... and all critical care pts) @ -No - Lab Data Result diagrams: 05/24/23 18:29 05/24/23 18:29 Lab Results 05/24/23 05/24/23 05/24/23 Range/Units 18:29 18:29 18: WBC 7.9 (3.8-10.6) k/uL RBC 4.93 (4.30-5.90) m/uL Hgb 13.9 (13.0-17.5) gm/dL Hct 42.6 (39.0-53.0) % MCV 86.5 (80.0-100.0) fL MCH 28.2 (25.0-35.0) pg MCHC 32.5 (31.0-37.0) g/dL RDW 14.2 (11.5-15.5) % Plt Count 253 (150-450) k/uL MPV 7.0 Neutrophils % 48 % Lymphocytes % 39 % Monocytes % 7 % Eosinophils % 3 % Basophils % 1 % Neutrophils # 3.8 (1.3-7.7) k/uL Lymphocytes # 3.1 (1.0-4.8) k/uL Monocytes # 0.6 (0-1.0) k/uL Eosinophils # 0.3 (0-0.7) k/uL Basophils # 0.0 (0-0.2) k/uL PT 10.8 (10.0-12.5) sec INR 1.0 (<1.2) APTT 22.7 (22.0-30.0) sec Sodium 140 (137-145) mmol/L Potassium 4.0 (3.5-5.1) mmol/L Chloride 106 (98-107) mmol/L Carbon Dioxide 23 (22-30) mmol/L Anion Gap 11 mmol/L BUN 28 H (9-20) mg/dL Creatinine 1.68 H (0.66-1.25) mg/dL Est GFR (CKD-EPI)AfAm 50 (>60 ml/min/1.73 sqM) Est GFR (CKD-EPI)NonAf 43 (>60 ml/min/1.73 sqM) Glucose 110 H (74-99) mg/dL Calcium 9.5 (8.4-10.2) mg/dL Magnesium 1.6 (1.6-2.3) mg/dL Total Bilirubin 0.4 (0.2-1.3) mg/dL AST 30 (17-59) U/L ALT 33 (4-49) U/L Alkaline Phosphatase 62 (38-126) U/L Troponin I (0.000-0.034) ng/mL Total Protein 7.0 (6.3-8.2) g/dL Albumin 4.2 (3.5-5.0) g/dL 05/24/23 Range/Units 18:29 WBC (3.8-10.6) k/uL RBC (4.30-5.90) m/uL Hgb (13.0-17.5) gm/dL Hct (39.0-53.0) % MCV (80.0-100.0) fL MCH (25.0-35.0) pg MCHC (31.0-37.0) g/dL RDW (11.5-15.5) % Plt Count (150-450) k/uL MPV Neutrophils % % Lymphocytes % % Monocytes % % Eosinophils % % Basophils % % Neutrophils # (1.3-7.7) k/uL Lymphocytes # (1.0-4.8) k/uL Monocytes # (0-1.0) k/uL Eosinophils # (0-0.7) k/uL Basophils # (0-0.2) k/uL PT (10.0-12.5) sec INR (<1.2) APTT (22.0-30.0) sec Sodium (137-145) mmol/L Potassium (3.5-5.1) mmol/L Chloride (98-107) mmol/L Carbon Dioxide (22-30) mmol/L Anion Gap mmol/L BUN (9-20) mg/dL Creatinine (0.66-1.25) mg/dL Est GFR (CKD-EPI)AfAm (>60 ml/min/1.73 sqM) Est GFR (CKD-EPI)NonAf (>60 ml/min/1.73 sqM) Glucose (74-99) mg/dL Calcium (8.4-10.2) mg/dL Magnesium (1.6-2.3) mg/dL Total Bilirubin (0.2-1.3) mg/dL AST (17-59) U/L ALT (4-49) U/L Alkaline Phosphatase (38-126) U/L Troponin I <0.012 (0.000-0.034) ng/mL Total Protein (6.3-8.2) g/dL Albumin (3.5-5.0) g/dL - EKG Data -: EKG Interpreted by Me EKG Comments: 12-lead Electrocardiogram Interpretation Note EKG was reviewed and interpreted by myself. 12-lead ECG performed at 1804 is interpreted by me as revealing normal sinus rhythm at a rate of 96 beats per minute. [place] is normal. [place] interval is 129 ms, QRS duration is 98 ms, QTc is 427 ms.. There were no ST or T wave abnormalities to suggest myocardial is chemia or injury. R wave progression across the precordium was satisfactory. By my interpretation this EKG is non-diagnostic for acute ischemia. Disposition Clinical Impression: Chest wall pain Disposition: HOME SELF-CARE Condition: Good Instructions (If sedation given, give patient instructions): Chest Wall Pain (ED) Is patient prescribed a controlled substance at d/c from ED?: No Referrals: Alejandro Paredes Jr, DO [Primary Care Provider] - 1-2 days Time of Disposition: 20:36
--- NOTE | 2023-05-24 20:22 | CT ---
EXAMINATION TYPE: CT chest angio for PE CT DLP: 465.4 mGycm, Automated exposure control for dose reduction was used. DATE OF EXAM: 05/24/2023 7:20 PM COMPARISON: April 29, 2023 chest xray, July 29, 2019 CT chest CLINICAL INDICATION:Male, 62 years old with history of chest pain, history lung transplant; CP, Hx of lung transplant. R/O PE. TECHNIQUE/CONTRAST: CTA scan of the thorax is performed with IV Contrast, patient injected with 80ml mL of Isovue 370, TN P images are created and reviewed these are created on a separate workstation.. FINDINGS: There is adequate contrast bolus and timing. PULMONARY ARTERIES: The pulmonary trunk is enlarged, trunk measures 3.3 CM. There is mild deformity o f the left main pulmonary artery with adjacent surgical clips, likely postoperative changes. No defin ite filling defects are seen bilaterally to suggest pulmonary emboli. HEART: Mild cardiomegaly.Mild coronary artery calcification. No appreciable pericardial effusion. AORTA: Minimal calcifications along the arch. Ascending aorta is 3 CM, descending is 2.4 CM. No diss ection flap identified. Origins of the branch vessels are obscured by artifact. LOWER NECK: No significant findings. MEDIASTINUM: No enlarged nodes identified. Postoperative changes in the bilateral hilar regions and along the medial aspect of the left lung. SOFT TISSUES/LYMPH NODES: Mild bilateral gynecomastia like changes. No enlarged axillary lymph nodes. LUNGS/ PLEURA: New since 07/2019 but similar to the imaged lung bases 11/2021, there are pleuroparench ymal changes at the right lung base with associated radiodense surgical material, loculated small lef t pleural effusion, not significantly changed. Other scattered areas of presumed scarring. No definit e acute airspace disease or pneumothorax demonstrated. AIRWAY: Central airways are patent. MUSCULOSKELETAL: Mild degenerative changes of the shoulders. Sternal fixation hardware inferiorly. Th ere are mild chronic appearing deformities of multiple right-sided ribs. No current acute fracture is seen. Mild/moderate multilevel degenerative disk disease throughout the thoracic spine. UPPER ABDOMEN: No significant findings. IMPRESSION: 1. No evidence of acute pulmonary embolism. 2. Mild deformity of the left main pulmonary artery, likely postoperative. 3. Mildly enlarged pulmonary trunk, can be seen with pulmonary hypertension. 4. Appearance of the lungs likely due to post-transplant changes. 5. No clear evidence of an acute pulmonary abnormality.
[2023-05-24 21:02] VITALS: BP 127/89; PULSE 87; RESP 20
== END 2023-05-24 20:53 | disposition home or self-care (01) ==
LOC: EC 17:43
DX: R07.89 Other chest pain (principal); Z88.0 Allergy status to penicillin; Z91.030 Bee allergy status; Z87.891 Personal history of nicotine dependence
CPT/HCPCS: 36415; 93005; 80053; 83735; 84484; 85025; 85610; 85730; 71275; 99285; Q9967